=== PATIENT | female | born 1990 | race African-American/Black ===

== ENCOUNTER 2017-07-27 10:36 | Emergency (ER) | payer OTHER ==
[2017-07-27 11:28] LABS: Pregnancy Test - Urine (BHCG) POSITIVE (Negative)
[2017-07-27 11:29] LABS: Pregu Control Background? CLEAR/WHITE (CLR/WHITE); Pregu Control Bar Appear? YES (CONTROL BAR); Specific Gravity 1.027 (1.002-1.036)
[2017-07-27] MEDS ORDERED: Ondansetron ODT 4 MG TAB ONE (11:42)
== END 2017-07-27 11:58 | disposition home or self-care (01) ==
LOC: ERS 10:36
DX: O21.9 Vomiting of pregnancy, unspecified (principal); O99.511 Diseases of the respiratory system complicating pregnancy, first trimester; J45.909 Unspecified asthma, uncomplicated; O99.331 Smoking (tobacco) complicating pregnancy, first trimester; F17.210 Nicotine dependence, cigarettes, uncomplicated; O99.341 Other mental disorders complicating pregnancy, first trimester; F41.9 Anxiety disorder, unspecified; F31.9 Bipolar disorder, unspecified; F90.9 Attention-deficit hyperactivity disorder, unspecified type; Z3A.01 Less than 8 weeks gestation of pregnancy
CPT/HCPCS: 81025; 99284; Q0162

== ENCOUNTER 2018-03-23 07:48 | Inpatient (IN) | payer OTHER ==
[2018-03-28] MEDS ORDERED: Ondansetron HCl/PF 4 MG/2 ML Vial IVP PRN (23:24)
[2018-03-28] MEDS ORDERED: Promethazine HCl 25 MG/ML VIAL IM PRN (23:24)
[2018-03-28] MEDS ORDERED: Lidocaine 1% (PF) 30 ML VIAL SC PRN (23:24)
[2018-03-28] MEDS ORDERED: NS / Oxytocin 40 units/1000ml 1,000 ML IV PRN (23:24)
[2018-03-28] MEDS ORDERED: Penicillin G Potassium 5 MILL.UNITS in Sodium Chloride 0.9% 100 ML IVPB SCH (23:30)
[2018-03-28] MEDS: Lactated Ringer's 1,000 ML IV SCH (23:30)
[2018-03-28] MEDS ORDERED: NS w/ Oxytocin 10 units 500 ML IV SCH (23:30)
[2018-03-28 23:35] LABS: Hemoglobin 10.9 g/dL (12.0-16.0); Mean Corpuscular HGB CONC 35.5 g/dL (32.0-36.0); Mean Corpuscular Hemoglobin 34.9 pg (27.0-31.0); Mean Corpuscular Volume 98.3 fL (78.0-98.0); Mean Platelet Volume 6.7 fL (7.4-10.4); Platelet Count 288 thou/uL (130-400); RBC Distribution Width 11.6 % (11.5-14.5); Red Blood Cell (RBC) Count 3.12 mill/uL (4.20-5.40)
--- NOTE | 2018-03-29 01:34 | PDOC.LDPN ---
Labor & Delivery Progress Note - Subjective Subjective: painful contractions - Objective Vital signs reviewed and normal: yes General: breathing through contractions Uterine fundus: non tender Dilation: 2 Effacement: 75% (80) Station: -2 FHT: category 1 (130/mod/+accel/no decel) [place] contractions every: 2 Resuscitative measures: maternal position change Plan: continue plan of care -: 28 yo at 40.6w here for IOL however found to be in latent labor 1. tIUP - Making cervical change - Continue expectant management - OP position at this time, vertex confirmed on bedside sono - Posterior placenta 2. Sickle cell trait - Per history - will discuss with PCP in a.m. and consider ordering confirmatory testing if results not available 3. H/o seizures - Last seizure > 1 year ago - Not on medication - Saw Dr. Funez during as well as [facility] - No e/o seizure activity 4. Bipolar d/o - Not on medications at this time Recheck in 4 hours
[2018-03-29 02:00] LABS: HBSAg Index 0.22 S/CO (0-0.99); Hep B Surf Ag Non-Reactive S/CO (NonReactive)
[2018-03-29] MEDS: Lactated Ringer's 1,000 ML IV SCH ×3 (03:15→17:17)
[2018-03-29] MEDS: Penicillin G 2.5 MILL.units 2.5 MILL.UNITS in Premix Bag 1 BAG IVPB SCH ×5 (03:27→20:02)
--- NOTE | 2018-03-29 04:40 | PDOC.LDPN ---
Labor & Delivery Progress Note - Subjective Subjective: painful contractions - Objective Vital signs reviewed and normal: yes General: breathing through contractions Dilation: 3 Effacement: 75% (80) Station: -2 FHT: category 1 [place] contractions every: 2-4 min Resuscitative measures: maternal position change Plan: continue plan of care -: 28 yo at 40.6w here for IOL however found to be in latent labor 1. tIUP - Making cervical change - Continue expectant management - OP position at this time, vertex confirmed on bedside sono - Posterior placenta 2. Sickle cell trait - Per history - will discuss with PCP in a.m. and consider ordering confirmatory testing if results not available 3. H/o seizures - Last seizure > 1 year ago - Not on medication - Saw Dr. Funez during as well as [facility] - No e/o seizure activity 4. Bipolar d/o - Not on medications at this time Recheck in 2 hours
[2018-03-29] MEDS: Fentanyl 100 MCG/2 ML VIAL SLOW IVP PRN ×6 (05:43→18:40)
--- NOTE | 2018-03-29 06:39 | PDOC.LDPN ---
Labor & Delivery Progress Note - Subjective Subjective: painful contractions - Objective Vital signs reviewed and normal: yes General: resting Dilation: 3 Effacement: 75% (80) Station: -2 FHT: category 1 [place] contractions every: 1-4 Plan: pitocin for augmentation -: 28 yo at 40.6w here for IOL however found to be in latent labor 1. tIUP - No change in last 2 hours, will augment with pitocin - OP position at this time, vertex confirmed on bedside sono - Posterior placenta - Fentanyl 25-50 mcg q1hr PRN pain or epidural if she desires 2. Sickle cell trait - Per history - will discuss with PCP in a.m. and consider ordering confirmatory testing if results not available 3. H/o seizures - Last seizure > 1 year ago - Not on medication - Saw Dr. Funez during as well as [facility] - No e/o seizure activity 4. Bipolar d/o - Not on medications at this time Recheck in 2 hours
--- NOTE | 2018-03-29 13:09 | PDOC.EVN ---
Event Note - Event Note Event Note: Rounding with OB/Peds team this morning. FOB appeared agitated and unhappy that there were male members of the team. Discussed concerns and informed that an attending physician will need to be involved/supervise labor and delivery. Patient did not seem to object as much as FOB. Concerns somewhat alleviated. FOB will allow 1 male in the room.
--- NOTE | 2018-03-29 17:17 | PDOC.LDPN ---
Labor & Delivery Progress Note - Subjective Subjective: painful contractions - Objective Vital signs reviewed and normal: yes General: breathing through contractions Uterine fundus: palpable contractions Dilation: 4 Effacement: 90% Station: -1 FHT: category 1 AROM: meconium stained fluid Resuscitative measures: other Plan: pitocin for augmentation -: 28 yo @ 41.0 who presents for IOL 1. tIUP - s/p AROM with mec stained fluid - no internals placed at this time. - will restart Pit and see how pt/baby is able to tolerate it as a contraction stress test. - Pt appears very anxious and expressed interest in delivery via . - will recheck in 2 hours or sooner if indicated. - <Erica Holguin - Last Filed: 03/29/18 17:15> Attending Addendum - Attending Addendum Date/Time: 03/30/18 0943 I personally evaluated the patient and discussed the management with Dr. Holguin I agree with the History, Examination, Assessment and Plan documented above with any addition or exceptions noted below. Labor appears dysfunctional. Prior noon-reassuring FHT responded to interventions. Now poor variability. Given desultory progress and non-reassuring FHT chances of diminished. <Henrik Hong - Last Filed: 03/30/18 09:47>
[2018-03-29] MEDS ORDERED: Ibuprofen 800 MG TAB PO SCH (18:00)
--- NOTE | 2018-03-29 18:47 | PDOC.EVN ---
Event Note - Event Note Event Note: Called for failed induction of labor and intolerance of contractions. Discussed risks, benefits and alternatives to and patient expressed understanding and agreed. Will proceed with section.
[2018-03-29] MEDS ORDERED: DISCONTINUE ALL PREVIOUS NARCOTICS FS SCH (19:15)
[2018-03-29] MEDS ORDERED: Bupivacaine 0.5% 20 ML, fentaNYL Citrate/PF 400 MCG in Sodium Chloride 0.9% 72 ML EPIDURAL SCH (19:15)
[2018-03-29] MEDS ORDERED: Phenylephrine HCL 10 MG/ML VIAL ONE (20:00)
[2018-03-29] MEDS ORDERED: Succinylcholine Chloride 20 MG/ML 10 ml SYRINGE FS ONE (20:00)
[2018-03-29] MEDS ORDERED: Oxytocin 10 UNITS/ML VIAL ONE ×2 (20:00→21:52)
[2018-03-29] MEDS ORDERED: PROPOFOL 200 MG/20 ML VIAL ONE (20:00)
[2018-03-29] MEDS ORDERED: Hydrocerin (Eucerin) Cream 120 gm Jar TOP PRN (20:11)
[2018-03-29] MEDS ORDERED: Ondansetron HCl/PF 4 MG/2 ML Vial IVP PRN ×2 (20:11→22:32)
[2018-03-29] MEDS ORDERED: Promethazine HCl 25 MG/ML VIAL IM PRN ×2 (20:11→22:32)
[2018-03-29] MEDS ORDERED: Acetaminophen 325 MG TAB PO PRN (20:11)
[2018-03-29] MEDS ORDERED: Naloxone HCl 0.4 mg/ml Vial IVP PRN ×4 (20:11→22:32)
[2018-03-29] MEDS ORDERED: ePHEDrine/0.9% NaCl/PF SYRINGE 50 mg/10 ml SLOW IVP PRN (20:11)
[2018-03-29] MEDS ORDERED: Lactated Ringer's 500 ML IV PRN (20:11)
[2018-03-29] MEDS ORDERED: diphenhydrAMINE 50 MG/ML VIAL IVP PRN ×2 (20:11→22:32)
[2018-03-29] MEDS ORDERED: Communication Order-Pharmacy FS SCH ×2 (20:15→22:45)
[2018-03-29] MEDS ORDERED: fentaNYL Citrate/PF 400 MCG, Bupivacaine 0.5% 20 ML in Sodium Chloride 0.9% 72 ML EPIDURAL SCH (20:15)
--- NOTE | 2018-03-29 20:56 | PDOC.LDPN ---
Labor & Delivery Progress Note - Subjective Subjective: comfortable - Objective Vital signs reviewed and normal: yes General: resting Uterine fundus: non tender Dilation: 4 Effacement: 90% Station: -1 FHT: category 3 (120/mod/no accel/recurrent late decels) [place] contractions every: 2-4 min AROM: meconium stained fluid IUPC placed: yes Resuscitative measures: amniofusion, maternal oxygen, maternal IV fluids, maternal position change - Assessment (1) Term Code(s): Z34.80 - ENCOUNTER FOR SUPRVSN OF NORMAL , UNSP TRIMESTER Current Visit: Yes Status: Acute Plan: other -: 28 yo at 40.6w here for IOL, now with recurrent late decelerations 1. tIUP - No cervical change since 1300, multiple attempts at pitocin augmentation with baby has not tolerated - Now with recurrent late decelerations - After epidural placement, amnioinfusion and position chance, no improvement - Discussed risks/benefits/alternatives again with patient who agrees to proceed with primary LTCS for non-reassuring FHT - Posterior placenta 2. Sickle cell trait - Per history 3. H/o seizures - Last seizure > 1 year ago - Not on medication - Saw Dr. Funez during as well as [facility] - No e/o seizure activity 4. Bipolar d/o - Not on medications at this time Will proceed with primary LTCS for NRFHT. Anesthesia notified and on the way. <Robyn Amin - Last Filed: 03/29/18 21:00> Attending Addendum - Attending Addendum Date/Time: 03/30/18 0948 I personally evaluated the patient and discussed the management with Dr. Amin I agree with the History, Examination, Assessment and Plan documented above with any addition or exceptions noted below. <Henrik Hong D - Last Filed: 03/30/18 09:49>
[2018-03-29] MEDS ORDERED: CEFAZOLIN/Water 2 GM/20 ML SYRINGE ONE (20:58)
[2018-03-29] MEDS ORDERED: Bicitra 30 ML UDCUP ONE (20:59)
[2018-03-29] MEDS ORDERED: Azithromycin 500 MG in Sodium Chloride 0.9% 250 ML 250 ML IVPB SCH (21:00)
[2018-03-29] MEDS ORDERED: Bicitra 30 ML UDCUP PO SCH (21:00)
[2018-03-29] MEDS ORDERED: CEFAZOLIN/Water 2 GM/20 ML SYRINGE SLOW IVP SCH (21:00)
[2018-03-29] MEDS ORDERED: Ondansetron HCl/PF 4 MG/2 ML Vial ONE (21:52)
[2018-03-29] MEDS ORDERED: Lidocaine 2% PF 5 ML VIAL ONE (21:54)
[2018-03-29] MEDS ORDERED: Lidocaine 2% PF Inj 2 ML VIAL ONE (21:55)
[2018-03-29] MEDS ORDERED: Fentanyl 100 MCG/2 ML VIAL ONE (22:10)
[2018-03-29 22:23] LABS: Actual Bicarbonate (HCO3a) 24.1 mEq/L (22-28); Base Excess (BEa) -5.1 mEq/L (-2.0 to +3.0)
[2018-03-29] MEDS ORDERED: Morphine PF 1 MG/ML SYR ONE (22:28)
[2018-03-29] MEDS ORDERED: Promethazine HCl 25 MG SUPP PR PRN (22:32)
[2018-03-29] MEDS ORDERED: Eucerin (Mineral Oil/Petrolatum,White) 30 gm Jar TOP PRN (22:32)
[2018-03-29] MEDS ORDERED: Naloxone HCl 0.4 mg/ml Vial IV PRN (22:32)
[2018-03-29] MEDS ORDERED: Ketorolac Tromethamine 30 MG/ML VIAL IVP PRN (22:32)
[2018-03-30] MEDS ORDERED: Lidocaine 2% PF Inj 2 ML VIAL ONE (00:30)
[2018-03-30] MEDS ORDERED: Bupivacaine/Epinephrine 0.25% 30 ML VIAL ONE (00:30)
[2018-03-30] MEDS ORDERED: Ketorolac Tromethamine 30 MG/ML VIAL ONE (01:31)
--- NOTE | 2018-03-30 02:24 | PDOC.PP ---
Post Progress Note Post Day #: 1 Subjective: Ms Chao is a 28yo now who delivered a TAGA female at 40.6w via stat section under general anesthesia for nonreassuring heart tones at 2210. Pt feeling good and pain is well controlled. Nursing reports minimal lochia. Tolerating ice chips. Denies VAZQUEZ, Shortness of breath. PO intake tolerated: yes (Ice chips and water) Flatus: no Ambulation: no Vital Signs (12 hours) Temp Pulse Resp BP Pulse Ox 03/30/18 02:08 98.6 F 71 18 123/59 L 96 Weight Weight 154 g - Physical Examination General: NAD Cardiovascular: no m/r/g, RRR Respiratory: clear to auscultation bilaterally, non-labored breathing Abdominal: + bowel sounds, lochia, appropriately TTP Deviation from normal: incision covered Psychiatric: A&Ox3, normal affect Result Diagrams: 03/28/18 22:01 Additional Labs: Post Labs Blood Type O POSITIVE 03/28/18 22:01 Hep Bs Antigen Non-Reactive S/CO (NonReactive) 03/28/18 22:01 (1) Normal course Code(s): Z39.2 - ENCOUNTER FOR ROUTINE FOLLOW-UP Status: Acute - Assessment/Plan Ms Chao is a 28yo now who delivered a TAGA female at 40.6w via stat section under general anesthesia for nonreassuring heart tones at 2210. Postop 4hrs - Continue Routine care - H&H in AM - Will add PO pain meds - Advance diet slowly as tolerated <Princess Lucas - Last Filed: 03/30/18 04:07> Vital Signs (12 hours) Temp Pulse Resp BP Pulse Ox 03/30/18 04:19 98.0 F 77 18 113/56 L 03/30/18 02:29 72 18 129/66 99 03/30/18 02:08 98.6 F 71 18 123/59 L 96 Weight Weight 154 g Result Diagrams: 03/30/18 05:06 Additional Labs: Post Labs Blood Type O POSITIVE 03/28/18 22:01 Hep Bs Antigen Non-Reactive S/CO (NonReactive) 03/28/18 22:01 <Henrik Hong - Last Filed: 03/30/18 09:51> Attending Addendum - Attending Addendum Date/Time: 03/30/18 0950 I personally evaluated the patient and discussed the management with Dr. Holguin I agree with the History, Examination, Assessment and Plan documented above with any addition or exceptions noted below. Wound looks great, pain well controlled <Henrik Hong - Last Filed: 03/30/18 09:51>
[2018-03-30] MEDS ORDERED: Lanolin Ointment 7 GM TUBE TOP PRN (02:29)
[2018-03-30] MEDS: Penicillin G 2.5 MILL.units 2.5 MILL.UNITS in Premix Bag 1 BAG IVPB SCH (02:50)
[2018-03-30] MEDS ORDERED: Adacel (T-DAP) 0.5 ML VIAL IM ONE (03:00)
[2018-03-30] MEDS ORDERED: diphenhydrAMINE 25 MG CAP PO PRN (03:02)
[2018-03-30] MEDS ORDERED: HYDROcodone/Acetaminophen 5/325 mg Tablet PO PRN (03:25)
[2018-03-30] MEDS ORDERED: Ibuprofen 800 MG TAB PO SCH (04:00)
[2018-03-30] MEDS: Ibuprofen 800 MG TAB PO SCH ×3 (05:39→22:06)
[2018-03-30 05:41] LABS: Hemoglobin 9.4 g/dL (12.0-16.0); Mean Corpuscular HGB CONC 35.2 g/dL (32.0-36.0); Mean Corpuscular Hemoglobin 35.2 pg (27.0-31.0); Mean Platelet Volume 6.5 fL (7.4-10.4); Platelet Count 224 thou/uL (130-400); RBC Distribution Width 11.8 % (11.5-14.5); Red Blood Cell (RBC) Count 2.66 mill/uL (4.20-5.40); White Blood Cell (WBC) Count 13.7 thou/uL (4.8-10.8)
--- NOTE | 2018-03-30 08:56 | PDOC.PP ---
Post Progress Note Post Day #: 1 Subjective: Pt doing well this morning. Pain is well controlled. She is tolerating PO. Has not started ambulating yet. Bonding well with baby. PO intake tolerated: yes Flatus: no Vital Signs (12 hours) Temp Pulse Resp BP Pulse Ox 03/30/18 04:19 98.0 F 77 18 113/56 L 03/30/18 02:29 72 18 129/66 99 03/30/18 02:08 98.6 F 71 18 123/59 L 96 Weight Weight 154 g - Physical Examination General: NAD Cardiovascular: no m/r/g, RRR Respiratory: clear to auscultation bilaterally Abdominal: no distention, appropriately TTP Fundus firm & at: 3 above umbilicus Skin: CS incision dry & intact Neurological: no gross focal deficits Psychiatric: A&Ox3, normal affect Result Diagrams: 03/30/18 05:06 Additional Labs: Post Labs Blood Type O POSITIVE 03/28/18 22:01 Hep Bs Antigen Non-Reactive S/CO (NonReactive) 03/28/18 22:01 (1) Normal course Code(s): Z39.2 - ENCOUNTER FOR ROUTINE FOLLOW-UP Status: Acute Comment: s/p pLTCS. Pt progressing well. H/H stable. Encourage ambulation. Pt may advance diet as tolerated. Pain control with PO meds. <Erica Holguin - Last Filed: 03/30/18 08:54> Vital Signs (12 hours) Temp Pulse Resp BP Pulse Ox 03/30/18 04:19 98.0 F 77 18 113/56 L 03/30/18 02:29 72 18 129/66 99 03/30/18 02:08 98.6 F 71 18 123/59 L 96 Weight Weight 154 g Result Diagrams: 03/30/18 05:06 Additional Labs: Post Labs Blood Type O POSITIVE 03/28/18 22:01 Hep Bs Antigen Non-Reactive S/CO (NonReactive) 03/28/18 22:01 <Henrik Hong - Last Filed: 03/30/18 09:53> Attending Addendum - Attending Addendum Date/Time: 03/30/18 0952 I personally evaluated the patient and discussed the management with Dr. Holguin I agree with the History, Examination, Assessment and Plan documented above with any addition or exceptions noted below. <Henrik Hong - Last Filed: 03/30/18 09:53>
--- NOTE | 2018-03-30 09:43 | DN-2 ---
DATE OF PROCEDURE: 03/30/2018 RESIDENT SURGEON: Robyn Amin M.D.; Pily Amaral DO. SPRAY II PAINTER SURGEON: Princess Lucas M.D. ATTENDING SURGEON: Henrik Hong M.D. PROCEDURE: Primary low-transverse section for nonreassuring heart tones. PREOPERATIVE DIAGNOSES: 1. Term intrauterine at 40.6 weeks. 2. Persistent category 3 tracing. 3. Sickle cell trait per history. 4. Seizure disorder. 5. Bipolar disorder. POSTOPERATIVE DIAGNOSIS: Term intrauterine , status post stat low-transverse secti on. ANESTHESIA: General plus epidural was not adequate. INDICATIONS: The patient is a 28-year-old G2, P0-0-1-0, now P1-0-1-1 female at 40.6 weeks gestation who presented for induction of labor. She was initially found to be in latent labor and was monitore d initially with expectant management. Initially, the patient had some intermittent late deceleratio ns; however, these were remedied with position changes and the patient continued to desire to labor a nd made it to 4 cm dilation despite multiple attempts at augmentation and artificial rupture of membranes. This revealed light meconium and at that time, the patient was having intermittent late decelerations. The patient desired to try an epidural and an ongoing position changes to see if she can continue to make cervical change. Unfortunately, despite all associative efforts, the hear t tracing began to have recurrent late decelerations and a was rediscussed with the patient who was agreeable at that time. The patient presented to the operating room, heart tones were checked prior to prepping and draping for the procedure and heart tones were found to be in th e 80s. At this time, the patient was dispositioned for a stat section. PROCEDURE IN DETAIL: After risks, benefits, and alternatives were explained to the patient, she gave informed consent. Preoperative antibiotics included cefazolin 2 grams IV and azithromycin 500 mg __ ___. The patient was taken to the operating room and as described above, general anesthesia was init iated as epidural was not adequate and the procedure became stat in nature with heart tones in the 80s. She was placed in the supine position with left tilt and prepped and draped in the usual st erile fashion. A Pfannenstiel incision was made with a scalpel and carried to the level of the fasci a, which was sharply nicked. The fascial cut was extended bilaterally with Lee scissors. The infer ior and superior edges of the cut fascial edges were elevated with Сергей clamps and underlying rectu s muscles were sharply and bluntly dissected free. The recti were divided digitally and retracted ma nually. The peritoneum was entered bluntly and retracted manually. The bladder blade was placed. L ow-transverse scar was made with the scalpel and the uterus was entered in the midline bluntly. Meco nium-stained fluid was seen. Hysterotomy was extended manually in a cephalic caudal position. The i nfant was noted to be vertex and easily delivered by fundal pressure. Mouth and nares were bulb suct ioned. Cord clamped and cut and grossly normal. Female infant was handed to the waiting nurse. Cor d blood was obtained. Cord segment was obtained. Placenta was manually extracted and found to be in tact with three-vessel cord and sent to pathology for evaluation. The uterus was externalized and th e endometrium was curetted with a dry lap. The bladder blade was replaced and the uterus was closed with a running locking 1-0 Monocryl suture. Of note, a left lateral extension on the hysterotomy was noted and was easily incorporated into the hysterotomy repair. At this time, I transitioned the ope ration to Dr. Pily Amaral who will dictate an addendum to this procedure. Per report, the rest of the operation was routine and the patient tolerated it very well. QBL was 885 and urine output wa s 600 mL of clear fluid. QUANTITATIVE BLOOD LOSS: 885 mL. COMPLICATIONS: Left lateral hysterotomy extension, status post repair. SPECIMENS: Cord blood sent to the lab for blood type and cord gas showed a pH of 7.2 with a base exc ess of 5.1. FINDINGS: Grossly normal female with Apgars of 8 and 9. Grossly normal placenta with meconiu m stain and 3-vessel cord, sent to pathology. DRAINS: [place] to gravity draining clear urine. Please see Dr. Amaral's note for details on the remainder of the procedure after first layer of hy sterotomy repair.
[2018-03-30] MEDS: Simethicone Chewable 80 MG TAB PO PRN (23:37)
[2018-03-30] MEDS: HYDROcodone/Acetaminophen 5/325 mg Tablet PO PRN (23:41)
[2018-03-31] MEDS: Ibuprofen 800 MG TAB PO SCH ×3 (05:36→21:47)
--- NOTE | 2018-03-31 07:57 | PDOC.PP ---
Post Progress Note Post Day #: 2 Subjective: Patient is doing well this morning. No complaints. Pain is well-controlled. PO intake tolerated: yes Flatus: yes Ambulation: yes Vital Signs (12 hours) Temp Pulse Resp BP Pulse Ox 03/31/18 05:30 98.6 F 61 18 129/80 97 03/30/18 23:44 98.4 F 75 18 129/79 03/30/18 20:30 98.7 F 72 18 127/71 94 L Weight Weight 65.771 kg - Physical Examination General: NAD Cardiovascular: no m/r/g Respiratory: clear to auscultation bilaterally Abdominal: lochia (normal period.), no distention, appropriately TTP Fundus firm & at: 1 above umbilicus Extremities: negative homans (B) Skin: CS incision dry & intact Neurological: no gross focal deficits Psychiatric: A&Ox3, normal affect Result Diagrams: 03/30/18 05:06 Additional Labs: Post Labs Blood Type O POSITIVE 03/28/18 22:01 Hep Bs Antigen Non-Reactive S/CO (NonReactive) 03/28/18 22:01 (1) Normal course Code(s): Z39.2 - ENCOUNTER FOR ROUTINE FOLLOW-UP Status: Acute Comment: s/p pLTCS. Pt progressing well. Vitals stable Pain control with PO meds. Barrier methods planned for contraception. Likely discharge tomorrow morning.
[2018-03-31] MEDS: Simethicone Chewable 80 MG TAB PO PRN (09:21)
--- NOTE | 2018-03-31 22:47 | PDOC.OPDEL ---
OB Operative/Delivery Note Delivery Dr/Surgeon: Brennan Assist: Gely Amaral Pre-Delivery Diagnosis: non-reassuring tracing Procedure/Post Delivery Dx: primary low transverse CS Weeks gestation: 40 (40.6 wks) Anesthesia: other (General anesthesia) - Findings A Sex: female - 1 min: 8 - 5 min: 9 - Additional Findings/Plan Placenta delivered: manual removal findings: low transverse hysterotomy with extension (minor left extension) Estimated blood loss: QBL 885 mL Compilations/Other Findings: Procedure Note Date of Procedure: 03/29/2018 Resident Surgeon: Brennan Legal Internship Surgeon: Munir Attending Surgeon: Gely Procedure: Primary low transverse caesarean section Preoperative Diagnosis: 1)Term intrauterine 2)NRFHTs, not tolerating pitocin 3)Rubella non-immune 4)GBS positive Postoperative Diagnosis: 1)same as above 2)TIUP, delivered Anesthesia: General anesthesia Indications: The patient is a 28 year old G2,P0010 female at 40.5 weeks gestation who presents for a scheduled elective induction of labor. She was taken back for stat pLTCS due to non-reassuring FHTs. Procedure in Detail: After risks, benefits, and alternatives were explained to the patient, she gave informed consent. Pre-operative antibiotics included Cefazolin 2 gram IV. The patient was taken to the operating room and spinal anesthesia was initiated. She was placed in the supine position with a left tilt and prepped and draped in usual sterile fashion. A Pfannenstiel incision was made with a scalpel and carried down to the level of the fascia which was sharply nicked. The fascial cut was extended bilaterally with Lee sissors. The inferior and superior edges of the cut fascial edges were elevated with Сергей clamps and the underlying rectus muscles were sharply and bluntly dissected free. The recti were divided digitally and retracted manually. The peritoneum was entered bluntly and retracted manually. Bladder blade was placed. A low transverse score was made with the scalpel and the uterus was entered in the midline with the scalpel. Meconium stained fluid was noted. The hysterotomy was extended manually. The infant was noted to be vertex and was easily delivered by fundal pressure. Mouth and nares were bulb suctioned. Cord clamped and cut and grossly normal female infant was handed to waiting nurse. Cord blood and cord segment were obtained. Placenta was manually extracted, found to be intact with 3 vessel cord and discarded. The uterus was externalized and the endometrium was curetted with a dry lap. The bladder blade was replaced and the uterus was closed with a running locking #1 Chromic suture followed by a running non-locking #1 Chromic imbricating suture. Following this hemostasis was noted. The uterus was internalized and the hysterotomy was again noted to be hemostatic. The fascia was closed with a running non-locking 0-Vicryl suture. The subcutaneous tissue was irrigated and there were no bleeders. The skin was approximated 4-0 monocryl and a pressure dressing was placed. All counts were correct. The patient tolerated the procedure well and was taken to the recovery room in stable condition. Quantitative Blood Loss: 885 mL Complications: None Specimens: Cord blood sent to lab for blood type, Cord segment sent for analysis , placenta sent for pathology Findings: Grossly normal female infant with apgars of 8 and 9. Grossly normal placenta with 3 vessel cord discarded. Drains: [place] to gravity draining clear urine Post delivery plan: routine recovery
[2018-04-01] MEDS: HYDROcodone/Acetaminophen 5/325 mg Tablet PO PRN (04:15)
[2018-04-01] MEDS: Ibuprofen 800 MG TAB PO SCH (06:11)
--- NOTE | 2018-04-01 07:35 | PDOC.PP ---
Post Progress Note Post Day #: 2 Subjective: Patient doing well today. Pain well-controlled. PO intake tolerated: yes Flatus: yes Ambulation: yes Vital Signs (12 hours) Temp Pulse Resp BP Pulse Ox 03/31/18 20:20 98.3 F 59 L 16 124/70 96 03/31/18 20:00 98.3 F 59 L 16 Weight Weight 65.771 kg - Physical Examination General: NAD Cardiovascular: no m/r/g, RRR Respiratory: clear to auscultation bilaterally Abdominal: lochia (normal), no distention, appropriately TTP Fundus firm & at: 1 Extremities: negative homans (B) Skin: CS incision dry & intact Psychiatric: A&Ox3 Result Diagrams: 03/30/18 05:06 Additional Labs: Post Labs Blood Type O POSITIVE 03/28/18 22:01 Hep Bs Antigen Non-Reactive S/CO (NonReactive) 03/28/18 22:01 (1) Normal course Code(s): Z39.2 - ENCOUNTER FOR ROUTINE FOLLOW-UP Status: Acute Comment: s/p pLTCS. Pt progressing well. Vitals stable Pain control with PO meds. Barrier methods planned for contraception. Discharge planned for today. Follow-up recommended for 2 weeks. <Erica Holguin - Last Filed: 04/01/18 07:49> Vital Signs (12 hours) Temp Pulse Resp BP Pulse Ox 04/01/18 08:01 60 04/01/18 07:58 98.1 F 50 L 18 141/77 H 95 04/01/18 07:37 98.3 F 59 L 16 Weight Weight 65.771 kg Result Diagrams: 03/30/18 05:06 Additional Labs: Post Labs Blood Type O POSITIVE 03/28/18 22:01 Hep Bs Antigen Non-Reactive S/CO (NonReactive) 03/28/18 22:01 <Enriqueta Ruiz - Last Filed: 04/01/18 10:06> Attending Addendum - Attending Addendum Date/Time: 04/01/1858 I personally evaluated the patient and discussed the management with Dr. Holguin I agree with the History, Examination, Assessment and Plan documented above with any addition or exceptions noted below- Patient without complaints. Feeling well. Ambulating without difficulty. pain well controlled. Afebrile VSS A/P: 1) POD#3 s/p 1*LCT C/S for non-reassuring FHTs- doing well. Plan to d/c home today. <Enriqueta Ruiz - Last Filed: 04/01/18 10:06>
[2018-04-01 08:00] VITALS: BP 141/77
[2018-04-01 12:09] VITALS: TEMP 98.3
== END 2018-04-01 12:48 | disposition home or self-care (01) | DRG 765 ==
LOC: L&D 03-28 21:17 → 3SE 03-30 02:12
PROVIDERS: ADMIT Family Medicine; ATTEND Family Medicine
PROC: 10D00Z1 Extraction of Products of Conception, Low, Open Approach (ICD-10-PCS; principal; 2018-03-30)
PROC: 3E033VJ Introduction of Other Hormone into Peripheral Vein, Percutaneous Approach (ICD-10-PCS; 2018-03-30)
DX: O48.0 Post-term pregnancy (principal); O99.354 Diseases of the nervous system complicating childbirth; Z37.0 Single live birth; O99.824 Streptococcus B carrier state complicating childbirth; Z3A.40 40 weeks gestation of pregnancy; O99.02 Anemia complicating childbirth; D57.3 Sickle-cell trait; G40.909 Epilepsy, unspecified, not intractable, without status epilepticus; F31.9 Bipolar disorder, unspecified; O99.343 Other mental disorders complicating pregnancy, third trimester; O76 Abnormality in fetal heart rate and rhythm complicating labor and delivery
CPT/HCPCS: 36415; 82805; 83021; 85027; 86850; 86900; 86901; 87340; J0456; J1885; J2001; J2274; J2370; J2405; J2540; J2590; J2704; J3010; J3490; J7050

== ENCOUNTER 2018-03-25 17:36 | Day surgery (SDC) | payer OTHER ==
[2018-03-25 18:32] VITALS: BMI 30.4
--- NOTE | 2018-03-25 20:08 | PDOC.LDHP ---
Labor and Delivery H&P Chief complaint: contractions HPI: 28 yo here for reported increased contractions. Feels every 7 min. Was seen in clinic by Dr. Morena Holguin on and was dilated at 1cm and had her membranes stripped. She reports intermittent spotting since then. She endorses FM, vaginal pressure. No LOF or pain with CTX. No other complaints at this time. Current gestational age (weeks): 40 (40.2) Due date: 03/23/18 Dating criteria: last menstrual period (10.2wk sono), first trimester ultrasound Grav: 2 Para: 10 Current complications: none Allergies/Adverse Reactions: Allergies Allergy/AdvReac Type Severity Reaction Status Date / Time almond Allergy Severe Anaphylaxis Verified 03/25/18 18:17 Social history: other (tobacco use shortly before , but none during) - Physical Exam Vital signs reviewed and normal: yes General: NAD, resting Heart: RRR Lungs: nonlabored breathing Abdomen: NTTP Extremeties: no edema - Vaginal Exam cm dilated: 3 Effacement: 75% Station: -1 - OB Labs Blood type: O RH: positive Antibody Screen: negative HIV: negative RPR: negative HEPSAg: negative 1 hour GCT: negative GBS: positive Urine drug screen: negative Rubella: non-immune - Assessment post dates, latent labor - Plan -: 28 yo here for latent labor 1. sIUP, Post dates, latent labor -FHT Cat I, no 15x15 accels but presence of 10x10 -SVE at 1930 3/75/-1, regularly bernice q5min -Will monitor for the next two hours and recheck to assess for cervical progression -If making changes, will admit patient for labor 2. GBS+ -will start PCN ppx if she is admitted 3. Rubella Non immune -aware 4. Hx of anemia -can consider H/H post , taking oral iron, last labs report stable Hb of [address] ewing
[2018-03-25 20:49] VITALS: TEMP 99.2
[2018-03-25 20:56] VITALS: BP 126/72
--- NOTE | 2018-03-25 22:24 | PDOC.LDPN ---
Labor & Delivery Progress Note - Subjective Subjective: comfortable - Objective General: NAD Uterine fundus: non tender Dilation: 2 Effacement: 75% Station: -1 FHT: category 1 -: 28 yo here for latent labor 1. sIUP, Post dates, latent labor -FHT Cat I, no 15x15 accels but presence of 10x10 -SVE at 2130 unchanged from two hours ago -Due to no progression and inconsistent contractions, pt. is in latent labor. She is a G1 so do not expect rapid changes warranting admission for active labor. Pt. lives nearby and stated she feels comfortable going home. Gave her labor precautions and when to return. 2. GBS+ -will start PCN ppx if she is admitted 3. Rubella Non immune -aware 4. Hx of anemia -can consider H/H post , taking oral iron, last labs report stable Hb of [address] ewing
[2018-03-25] MEDS ORDERED: Butorphanol Tartrate 1 MG/ML VIAL SLOW IVP SCH (22:30)
== END 2018-03-25 22:35 | disposition home or self-care (01) ==
LOC: L&D/OP 17:36
DX: O48.0 Post-term pregnancy (principal); O99.820 Streptococcus B carrier state complicating pregnancy; O99.013 Anemia complicating pregnancy, third trimester; Z3A.40 40 weeks gestation of pregnancy
CPT/HCPCS: 96372; 99283; J0595

== ENCOUNTER 2018-07-07 14:37 | Emergency (ER) | payer OTHER ==
--- NOTE | 2018-07-07 15:33 | RAD ---
CHEST TWO VIEWS: 07/07/2018 PROVIDED CLINICAL HISTORY: Cough. COMPARISON: 07/03/2011 FINDINGS: The cardiac silhouette is at the upper limits of normal in size. The lungs appear clear. There is n o pleural fluid or pneumothorax apparent. IMPRESSION: No evidence for an acute cardiopulmonary process. POS: [facility]
== END 2018-07-07 15:48 | disposition home or self-care (01) ==
LOC: ERS 14:37
DX: J40 Bronchitis, not specified as acute or chronic (principal); F31.9 Bipolar disorder, unspecified; F90.9 Attention-deficit hyperactivity disorder, unspecified type; F17.210 Nicotine dependence, cigarettes, uncomplicated; F41.9 Anxiety disorder, unspecified
CPT/HCPCS: 71046

== ENCOUNTER 2019-06-19 19:09 | Emergency (ER) | payer OTHER ==
[2019-06-19 21:12] LABS: #Basophils 0.1 thou/uL (0.0-0.2); #Eosinphils 0.3 thou/uL (0.0-0.7); #Lymphocytes 2.9 thou/uL (1.20-3.40); #Monocytes 0.8 thou/uL (0.11-0.59); %Basophils 1.2 % (0.0-1.0); %Eosinophils 3.3 % (0.0-10.0); %Lymphocytes 36.1 % (21.0-51.0); %Monocytes 9.3 % (0.0-10.0); Hemoglobin 11.6 g/dL (12.0-16.0); Mean Corpuscular HGB CONC 33.3 g/dL (32.0-36.0); Mean Corpuscular Hemoglobin 34.2 pg (27.0-31.0); Mean Platelet Volume 6.9 fL (7.4-10.4); Platelet Count 203 thou/uL (130-400); RBC Distribution Width 11.5 % (11.5-14.5); Red Blood Cell (RBC) Count 3.39 mill/uL (4.20-5.40)
[2019-06-19 21:34] LABS: ALT (SGPT) 10 U/L (8-55); AST (SGOT) 14 U/L (5-34); Albumin 4.3 g/dL (3.5-5.0); Alkaline Phosphatase 46 U/L (40-110); Anion Gap 9 mmol/L (10-20); BUN (Urea Nitrogen) 17 mg/dL (7.0-18.7); Bilirubin, Total 0.3 mg/dL (0.2-1.2); Calc. Creatinine Clearance 0 mL/min (70-130); Calcium 9.3 mg/dL (7.8-10.44); Carbon Dioxide 26 mmol/L (22-29); Chloride 106 mmol/L (98-107); Estimated GFR-MDRD 70; Globulin 2.9 g/dL (2.4-3.5); Glucose 86 mg/dL (70-105); Lipase 33 U/L (8-78); Potassium 3.6 mmol/L (3.5-5.1); Protein, Total 7.2 g/dL (6.0-8.3); Sodium 137 mmol/L (136-145)
[2019-06-19 21:56] LABS: Bilirubin Negative (Negative); Blood, Urine Negative (Negative); Clarity Clear (Clear); Glucose, Urine (Dipstick) Normal (Negative); Leukocyte 25 Leu/uL (Negative); Nitrite 2+ (Negative); Pregnancy Test - Urine (BHCG) Negative (Negative); Pregu Control Background? CLEAR/WHITE (CLR/WHITE); Pregu Control Bar Appear? YES (CONTROL BAR); Protein, Urine (Dipstick) Negative (Neg-Trace); RBC/HPF 0-3 HPF (0-3); Specific Gravity 1.025 (1.002-1.036); Urobilinogen Normal mg/dL (Less than 2)
[2019-06-19 22:06] LABS: Bacteria/HPF 3+ HPF (None Seen)
== END 2019-06-19 22:20 | disposition home or self-care (01) ==
LOC: ERS 19:09
DX: N39.0 Urinary tract infection, site not specified (principal); R19.7 Diarrhea, unspecified; F41.9 Anxiety disorder, unspecified; F31.9 Bipolar disorder, unspecified; F17.210 Nicotine dependence, cigarettes, uncomplicated; J45.909 Unspecified asthma, uncomplicated; F90.9 Attention-deficit hyperactivity disorder, unspecified type
CPT/HCPCS: 36415; 80053; 81003; 81015; 81025; 83690; 85025; 99284

== ENCOUNTER 2020-03-18 05:41 | Inpatient (IN) | payer OTHER ==
[~2020-03-18 05:41] MED LIST: Promethazine HCl 25 MG/ML VIAL IM PRN
[2020-03-18] MEDS ORDERED: Ondansetron PF 4 MG/2 ML Vial IVP PRN ×3 (05:45→11:49)
[2020-03-18] MEDS ORDERED: hydrALAZINE 20 MG/ML VIAL SLOW IVP PRN ×2 (05:45→11:49)
[2020-03-18] MEDS ORDERED: Lactated Ringer's 1,000 ML IV SCH (05:45)
[2020-03-18] MEDS ORDERED: CEFAZOLIN 2 GM in Premix Bag 1 BAG IVPB SCH (06:00)
[2020-03-18] MEDS ORDERED: Bicitra 30 ML UDCUP PO SCH (06:00)
[2020-03-18 06:33] VITALS: BMI 30.2
--- NOTE | 2020-03-18 06:33 | PDOC.FPROB ---
FMR OB H&P: HPI - History of Present Illness Chief Complaint: rCSx Indentification: History of Present Illness: Patient is a 30 y/o female at 38.3W EGA by LMP, consistent with 2T US, who presents to L&D for rCSx. Patient's has been complicated by 1T and 2T drug abuse (MJ), inconsistent follow-up with TAMP and MFM, and suspicion for IUGR. Of note, the patient also has a history of untreated Bipolar Disorder, untreated Asthma and untreated Seizure Disorder, but per the patient her last seizure was >24M prior. Patient states that she feels well at this time, and endorses good movement, with no painful contractions or loss of fluids. In addition, patient denies severe headaches, visual disturbances, RUQ pain or lower extremity edema. Primary Care Physician: Dr. Michael Teague ([facility]) / Dr. Suhail Lucas ([facility]) FMR OB H&P: Current - Care : 3 Para: 1 Gestational age: 38.3W Due date: 03/29/2020 Dating Criteria: LMP, consistent with 2T US Course/Complications: See HPI - OB Labs Blood type: O RH: positive Antibody Screen: negative HIV: negative RPR: negative HepBsAg: negative Quad screen: negative Urine drug screen: positive Gonorrhea: negative Chlamydia: negative Pap Smear: Negative 1 hour gtt: 142 3 hour GTT: 100 GBS: positive H&H: 10.5 / 30 Platelets: 250 Additional labs: Pre-E Labs and UDS pending - First Trimester Ultrasound First trimester: Not Performed - Additional Ultrasound Additional: 12/02/2019 US: EFW 6%, Size Consistent with Dates, Constitutionally Small Fetus vs. 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 - Family History Family History: Maternal Hx of Sickle Cell Trait FMR OB H&P: Medications - Current Home Medications: Medication Instructions Recorded Confirmed Type Acetaminophen [Tylenol] 650 mg PO Q8H PRN #30 capsule 03/20/20 Rx Ferrous Sulfate [Feosol] 325 mg PO BID #60 tab 03/20/20 Rx Ibuprofen 800 mg PO TID PRN #30 tablet 03/20/20 Rx Ibuprofen [Motrin] 800 mg PO Q8HR #20 tab 03/20/20 Rx Magnesium Hydroxide [Milk Of 30 ml PO DAILYPRN PRN #1 bot 03/20/20 Rx Magnesium] Multivit 47/Iron/Folate 1/Dha 1 each PO DAILY #30 capsule 03/20/20 Rx [Virt-Pn Dha Softgel] Polyethylene Glycol 3350 [Miralax] 17 gm PO DAILY #30 pk 03/20/20 Rx Allergies/Adverse Reactions: Allergies Allergy/AdvReac Type Severity Reaction Status Date / Time almond Allergy Severe Anaphylaxis Verified 10/20/19 14:04 FMR OB H&P: ROS - Review of Systems General: reports: fatigue. denies: fever/chills, recent trauma Eyes: denies: vision changes, scotomas, floaters ENT: denies: rhinorrhea, frequent nose bleed Cardiovascular: denies: chest pain, palpitation, edema Respiratory: denies: cough, congestion, shortness of breath Gastrointestinal: denies: abdominal pain, cramping, nausea, vomiting, diarrhea, constipation, bright red blood Genitourinary (Female): reports: vaginal pressure. denies: dysuria, hematuria, vaginal discharge, vaginal bleeding, vaginal mass/sore, contractions Musculoskeletal: reports: pain, stiffness Neurologic: denies: syncope, seizures, headache Integumentary: denies: rash Breast: reports: pain/tenderness Psychological: reports: depression (Intermittent), other (No recent episodes of ricardo) FMR OB H&P: Vital Signs - Maternal Vital signs: HR (65) BP (137/85) RR (18) O2Sat(100%) - Heart Tones Baseline: 140 Variability: moderate Acceleration: present Deceleration: absent Category: category 1 [place] contractions every: Intermittent FMR OB H&P: Physical Exam - Physical Exam General: NAD, awake, alert and oriented HEENT: normocephalic and atraumatic, PERRLA, EOMI, MMM, grossly normal vision, grossly normal hearing, normal nasal mucosa, oropharynx clear, good dention Neck: supple, FROM, trachea midline, no LAD Chest: non-tender to palpation Breast: symmetric Heart: RRR, normal S1/S2, pulses present, no edema, other (3/6 Systolic Murmur) General: CTAB, no respiratory distress, good air movement, no rales/rhonchi, no wheezing, no retractions Abdomen: gravid, non-tender Musculoskeletal: pulses present, FROM in all four extremities, no misalignment/ asymmetry, no atrophy Neurological: cranial nerves II through XII intact, no focal deficit Skin: no rash, capillary refill <2 seconds Lymphatic: no unusual bruising or bleeding, no purpura, no petechia, no LAD Psychiatric: intact recent and remote memory, good judgement and insight, normal mood and affect - Pelvic Exam Vulva: normal hair distribution, no lesions FMR OB H&P: A/P - Problem List (1) High-risk Status: Acute Code(s): O09.90 - SUPERVISION OF HIGH RISK , UNSP, UNSP TRIMESTER (2) History of tobacco abuse Status: Acute Code(s): Z87.891 - PERSONAL HISTORY OF NICOTINE DEPENDENCE (3) History of cannabis abuse Status: Acute Code(s): F12.11 - CANNABIS ABUSE, IN REMISSION (4) History of miscarriage Status: Acute Code(s): Z87.59 - PERSONAL HISTORY OF COMP OF PREG, CHLDBRTH AND THE PUERP (5) Bipolar disorder Status: Acute Code(s): F31.9 - BIPOLAR DISORDER, UNSPECIFIED (6) History of seizure disorder Status: Acute Code(s): Z86.69 - PERSONAL HISTORY OF DIS OF THE NERVOUS SYS AND SENSE ORGANS Disposition: Patient is a 30 y/o female at 38.3W EGA by LMP, consistent with 2T US, who presents to L&D for rCSx due to concerns of IUGR. 1. Term Intrauterine (High Risk) -Patient appears well at this time - not in active labor -Maternal VSS with benign initial physical exam - although multiple SBPs recorded in the 140s prior to arrival to OR -FHTs in the 140s with accelerations present, no decels - intermittent, painless CTX -LR @ 125 ml/hr -Anesthesia: Consulted, aware -Baseline L&D Labs: Pending -Pre-E Labs: Pending -See #2, #3, #4, #5, #6 2. History of Tobacco Abuse -Will continue to encourage Tobacco Abuse Cessation and secondhand smoke avoidance throughout hospitalization 3. History of Cannabis Abuse -UDS: Pending -Meconium Drug Screen: Pending -Case Management Consult: Pending 4. Bipolar Disorder -Patient does not appear actively manic / depressed -Continue to monitor closely -Plan for [place] Depression Scale at initial Visit 5. History of Seizure Disorder -Per patient, no seizures in >24M despite no medication -Patient received high-dose Folic Acid during 1T -Plan to monitor BP closely during intrapartum / period 6. Hx of HSV(+) Testing -Patient denies known vaginal outbreaks -No active lesions noted on intake exam 7. Hx of Asthma -Avoid Hemabate if Hemorrhage occurs Code: Full Diet: NPO Activity: Bed Rest VTE PPx: SCDs IVF: LR @ 125 ml/hr Dispo: Will admit patient to L&D for rCSx with planned routine care except as per above. Expected LOS < 48H Discussion: Date/Time: 03/18/20629 This H&P was discussed with [] and [] who agree with the above documentation and plan. Addendum - Attending - Attending Attestation Date/Time: 03/18/20658 I personally evaluated the patient and discussed the management with Dr. Teague I agree with the History, Examination, Assessment and Plan documented above with any addition or exceptions noted below. 30 yo female at 38.3 wks by LMP/8.4 wk sono admitted for repeat LTCS for gHTN and IUGR vs SGA Complications in include: LTCS, IUGR vs SGA, poor follow up, gHTN, marijuana use, hx of SGA , hx of seizure d/o, mild intermittent asthma, HSV IgG 1&2 positive (no known outbreaks), GBS pos, tobacco use HSV IgG positive - no prodrome symptoms. has been on ppx. no prior hx of lesions /outbreak R/B/A discussed. Questions answered. Will proceed to OR when ready. Joanne
[2020-03-18 07:05] LABS: Hemoglobin 10.5 g/dL (12.0-16.0); Mean Corpuscular HGB CONC 34.9 g/dL (32.0-36.0); Mean Corpuscular Hemoglobin 35.6 pg (27.0-31.0); Mean Platelet Volume 7.7 fL (7.4-10.4); Platelet Count 250 thou/uL (130-400); RBC Distribution Width 11.8 % (11.5-14.5); Red Blood Cell (RBC) Count 2.94 mill/uL (4.20-5.40); White Blood Cell (WBC) Count 7.6 thou/uL (4.8-10.8)
[2020-03-18] MEDS ORDERED: MORPHINE 5 MG/10 ML PF VIAL ONE (07:41)
[2020-03-18] MEDS ORDERED: EPHEDRINE 25 MG/5 ML SYRINGE ONE ×2 (07:41→08:07)
[2020-03-18] MEDS ORDERED: PHENYLEPHRINE-NS 100 MCG/ML 10 ML SYRINGE ONE (07:41)
[2020-03-18 07:48] LABS: HBSAg Index 0.16 S/CO (0-0.99); Hep B Surf Ag Non-Reactive S/CO (NonReactive)
[2020-03-18 08:06] LABS: ALT (SGPT) Less than 7 U/L (8-55); AST (SGOT) 12 U/L (5-34); Albumin 3.6 g/dL (3.5-5.0); Alkaline Phosphatase 78 U/L (40-110); Anion Gap 12 mmol/L (10-20); BUN (Urea Nitrogen) 8 mg/dL (7.0-18.7); Bilirubin, Total 0.3 mg/dL (0.2-1.2); Calc. Creatinine Clearance 122 mL/min (70-130); Calcium 8.6 mg/dL (7.8-10.44); Carbon Dioxide 24 mmol/L (22-29); Chloride 105 mmol/L (98-107); Estimated GFR-MDRD Greater than 90; Globulin 2.7 g/dL (2.4-3.5); Glucose 69 mg/dL (70-105); Potassium 3.3 mmol/L (3.5-5.1); Protein, Total 6.3 g/dL (6.0-8.3); Sodium 138 mmol/L (136-145)
[2020-03-18] MEDS ORDERED: Oxytocin 10 UNITS/ML VIAL ONE ×2 (08:06→08:32)
[2020-03-18] MEDS ORDERED: Ketorolac Tromethamine 30 MG/ML VIAL ONE (08:07)
[2020-03-18 08:11] LABS: Syphilis Antibody Nonreactive (Nonreactive); Syphilis Antibody Index 0.04 S/CO (<1.00 Non-Reactive)
[2020-03-18] MEDS ORDERED: Ondansetron PF 4 MG/2 ML Vial ONE (08:23)
[2020-03-18] MEDS ORDERED: Fentanyl 100 MCG/2 ML VIAL ONE (08:30)
[2020-03-18 08:45] LABS: Amphetamine Not Detected (NotDetected); Barbiturates Screen Not Detected (NotDetected); Benzodiazepine Screen Not Detected (NotDetected); Cocaine Metabolite Screen Not Detected (NotDetected); Medtox Control Line Valid? VALID (VALID); Medtox Reader # READER 1; Methadone Not Detected (NotDetected); Methamphetamine Not Detected (NotDetected); Opiate Screen Not Detected (NotDetected); Oxycodone Screen Not Detected (NotDetected); Phencyclidine (PCP) Not Detected (NotDetected); THC/Cannabinoid Screen Not Detected (NotDetected); Tricyclic Screen Not Detected (NotDetected)
[2020-03-18] MEDS ORDERED: Midazolam HCl 2 mg/2 ml Vial ONE (08:58)
[2020-03-18] MEDS ORDERED: diphenhydrAMINE 50 MG/ML VIAL ONE ×2 (09:23→09:43)
[2020-03-18 09:50] LABS: Creatinine, Urine 130.01 mg/dL (47-110)
[2020-03-18] MEDS ORDERED: Ondansetron HCl/PF 4 MG/2 ML Vial IVP PRN (10:00)
[2020-03-18] MEDS ORDERED: Meperidine HCl/PF 25 MG/ML VIAL SLOW IVP PRN (10:00)
[2020-03-18] MEDS ORDERED: Promethazine HCl 25 MG/ML VIAL IM PRN (10:00)
[2020-03-18] MEDS ORDERED: Communication Order-Pharmacy FS SCH (10:00)
[2020-03-18] MEDS ORDERED: Ketorolac Tromethamine 30 MG/ML VIAL IVP SCH (10:00)
[2020-03-18] MEDS ORDERED: Naloxone HCl 0.4 mg/ml Vial IVP PRN ×2 (10:00)
[2020-03-18] MEDS ORDERED: Promethazine HCl 25 MG SUPP PR PRN (10:00)
[2020-03-18] MEDS ORDERED: L&D-Morphine 4 MG/ML VIAL SLOW IVP PRN (10:00)
[2020-03-18] MEDS ORDERED: Naloxone HCl 0.4 mg/ml Vial IV PRN (10:00)
[2020-03-18] MEDS ORDERED: HYDROmorphone 2 MG/ML VIAL SLOW IVP PRN (10:00)
[2020-03-18] MEDS ORDERED: Milk Of Magnesia 30 ML UDCUP PO PRN (11:49)
[2020-03-18] MEDS ORDERED: Lanolin Ointment 7 GM TUBE TOP PRN (11:49)
[2020-03-18] MEDS ORDERED: Acetaminophen 325 MG TAB PO PRN (11:49)
[2020-03-18] MEDS: diphenhydrAMINE 50 MG/ML VIAL IVP PRN (13:05)
--- NOTE | 2020-03-18 17:08 | PDOC.BPN ---
<Emma Boone - Last Filed: 03/18/20 17:08> - Brief Progress Note 30 yo s/p rLTCS Reports that she is feeling well. Says that she is experiencing minimal pain. Tolerating PO intake of clear fluids. PE: BP 127/63 P 56 R 18 T 97.6 Bandage dry, clean. No sings of incarcerated hernia No signs of hematoma Appropriately tender to palpation. No respiratory distress. A/P 30 G2 now P2 s/p rLTCS s/p rLTCS -QBL: 985 post op -pain well controlled, tolerating clear liquids -normal post-delivery bleeding -will continue to monitor for hematoma, if suspicious will order CBC, PT/PTT, U/ S -will continue to monitor her BP gHTN -normal post-op pressures -will continue to monitor <Ariane Rosa - Last Filed: 03/26/20 14:06> - Brief Progress Note Attending Note: Agree with above. Asymptomatic anemia. Monitor for symptoms. Currently no concerns for continued bleeding. No evidence of progression of gHTN since delivery. Joanne
[2020-03-18] MEDS: Ketorolac Tromethamine 30 MG/ML VIAL IVP PRN (20:29)
[2020-03-18] MEDS: Simethicone Chewable 80 MG TAB PO PRN (20:29)
[2020-03-18] MEDS: Ferrous Sulfate 325 MG TAB PO SCH (23:56)
[2020-03-19] MEDS: Ketorolac Tromethamine 30 MG/ML VIAL IVP PRN (03:07)
[2020-03-19] MEDS: Simethicone Chewable 80 MG TAB PO PRN ×3 (03:07→19:50)
[2020-03-19] MEDS: HYDROcodone/Acetaminophen 5/325 mg Tablet PO PRN ×2 (03:09→19:50)
--- NOTE | 2020-03-19 04:56 | PDOC.OBPPN ---
FMR OB PN: Subj - Interval History Hospital Day: 2 Day: 1 Chief Complaint: Post-Op Day #1 s/p rCSX Indentification: Interval History: None FMR OB PN: Obj - Maternal Vital signs: BP: [] HR: [] RR: [] Tmax: [] Pox: []% on [] Wt: [] - Urine output I&O: 03/17/20 03/18/20 03/19/20 06:59 06:59 06:59 Intake Total 840 Output Total 1440 Balance -600 - Lochia Lochia: Minimal - Pain Management Pain scale: 0 Intervention: oral medication FMR OB PN: Exam - Physical Exam General: NAD, awake, alert and oriented HEENT: PERRLA, EOMI, MMM, conjunctiva clear, no scleral icterus, grossly normal vision, grossly normal hearing, normal nasal mucosa, oropharynx clear, good dention Neck: supple, FROM, trachea midline, no LAD Chest: non-tender to palpation, no lesions Breast: symmetric Heart: RRR, no murmurs/rubs/gallops, pulses present, no edema Deviation from normal: 2/6 Systolic Murmur - Stable General: CTAB, no respiratory distress, good air movement, no rales/rhonchi, no wheezing, no retractions Abdomen: non-tender, bowel sound present Musculoskeletal: pulses present, FROM in all four extremities, no misalignment/ asymmetry Neurological: no focal deficit Skin: no rash, no jaundice : bandage intact, incision healing well, no erythema, no edema, no drainage, appropriately tender Lymphatic: no unusual bruising or bleeding, no purpura, no petechia, no LAD Psychiatric: intact recent and remote memory, good judgement and insight, normal mood and affect FMR OB PN: Data - Labs Lab results: Laboratory Results - last 24 hr 03/18/20 03/18/20 03/18/20 06:53 06:53 06:53 WBC RBC Hgb Hct MCV MCH MCHC RDW Plt Count MPV Sodium Potassium Chloride Carbon Dioxide Anion Gap BUN Creatinine Estimated GFR (MDRD) Glucose Calcium Total Bilirubin AST ALT Alkaline Phosphatase Serum Total Protein Albumin Globulin Albumin/Globulin Ratio U Random Total Protein Urine Creatinine Urine Opiates Screen Not Detected Ur Oxycodone Screen Not Detected Urine Methadone Screen Not Detected Ur Propoxyphene Screen Not Detected Ur Barbiturates Screen Not Detected Ur Tricyclics Screen Not Detected Ur Phencyclidine Scrn Not Detected Ur Amphetamines Screen Not Detected U Methamphetamines Scrn Not Detected U Benzodiazepines Scrn Not Detected U Cocaine Metab Screen Not Detected U Cannabinoids Screen Not Detected Drug Screen Comment Syphilis IgG/IgM Ab Nonreactive Hep Bs Antigen Non-Reactive Blood Type Antibody Screen 03/18/20 03/18/20 03/18/20 06:53 06:53 06:53 WBC 7.6 RBC 2.94 L Hgb 10.5 L Hct 30.0 L MCV 102.0 H MCH 35.6 H MCHC 34.9 RDW 11.8 Plt Count 250 MPV 7.7 Sodium 138 Potassium 3.3 L Chloride 105 Carbon Dioxide 24 Anion Gap 12 BUN 8 Creatinine 0.75 Estimated GFR (MDRD) Greater than 90 Glucose 69 L Calcium 8.6 Total Bilirubin 0.3 AST 12 ALT Less than 7 L Alkaline Phosphatase 78 Serum Total Protein 6.3 Albumin 3.6 Globulin 2.7 Albumin/Globulin Ratio 1.3 U Random Total Protein Urine Creatinine Urine Opiates Screen Ur Oxycodone Screen Urine Methadone Screen Ur Propoxyphene Screen Ur Barbiturates Screen Ur Tricyclics Screen Ur Phencyclidine Scrn Ur Amphetamines Screen U Methamphetamines Scrn U Benzodiazepines Scrn U Cocaine Metab Screen U Cannabinoids Screen Drug Screen Comment Syphilis IgG/IgM Ab Hep Bs Antigen Blood Type O POSITIVE Antibody Screen NEGATIVE 03/18/20 06:53 WBC RBC Hgb Hct MCV MCH MCHC RDW Plt Count MPV Sodium Potassium Chloride Carbon Dioxide Anion Gap BUN Creatinine Estimated GFR (MDRD) Glucose Calcium Total Bilirubin AST ALT Alkaline Phosphatase Serum Total Protein Albumin Globulin Albumin/Globulin Ratio U Random Total Protein 17 H Urine Creatinine 130.01 H Urine Opiates Screen Ur Oxycodone Screen Urine Methadone Screen Ur Propoxyphene Screen Ur Barbiturates Screen Ur Tricyclics Screen Ur Phencyclidine Scrn Ur Amphetamines Screen U Methamphetamines Scrn U Benzodiazepines Scrn U Cocaine Metab Screen U Cannabinoids Screen Drug Screen Comment Syphilis IgG/IgM Ab Hep Bs Antigen Blood Type Antibody Screen FMR OB PN: A/P - Problem List (1) High-risk Status: Acute Code(s): O09.90 - SUPERVISION OF HIGH RISK , UNSP, UNSP TRIMESTER (2) History of tobacco abuse Status: Acute Code(s): Z87.891 - PERSONAL HISTORY OF NICOTINE DEPENDENCE (3) History of cannabis abuse Status: Acute Code(s): F12.11 - CANNABIS ABUSE, IN REMISSION (4) History of miscarriage Status: Acute Code(s): Z87.59 - PERSONAL HISTORY OF COMP OF PREG, CHLDBRTH AND THE PUERP (5) Bipolar disorder Status: Acute Code(s): F31.9 - BIPOLAR DISORDER, UNSPECIFIED (6) History of seizure disorder Status: Acute Code(s): Z86.69 - PERSONAL HISTORY OF DIS OF THE NERVOUS SYS AND SENSE ORGANS (7) Asthma Status: Acute Code(s): J45.909 - UNSPECIFIED ASTHMA, UNCOMPLICATED (8) Gestational hypertension Status: Acute Code(s): O13.9 - GESTATIONAL HTN W/O SIGNIFICANT PROTEINURIA, UNSP TRIMESTER Disposition: Patient is a 30 y/o female at 38.3W EGA by LMP, consistent with 2T US, who presented to L&D for rCSx due to concerns of IUGR. 1. Term Intrauterine (High Risk), Delivered -Post-Op Day #1 s/p rCSX -Per chart review, QBL upper limit of normal (985 ml) w/o intra-operative or post-op complications noted -Maternal VSS since delivery - no elevated BPs documented -Pain adequately controlled with [place] 5/325 and Toradol -Physical exam unremarkable with well-healing surgical incision -See #2-8 2. Gestational HTN -Following initial evaluation during admission and throughout delivery BP remained mild range -Protein/Creatinine Ratio: 0.130 -No elevated BPs documented since delivery w/o worrisome signs or symptoms -Will continue to monitor closely -Hydralazine PRN 3. History of Seizure Disorder -Per patient, no seizures in >24M despite no medication -Patient received high-dose Folic Acid during 1T -No new neurologic symptoms since delivery -Will continue to monitor BP closely -See #2 4. History of Cannabis Abuse -Maternal UDS: Negative -[place] UDS: +Methamphetamines -Case Management Consult: Pending 5. History of Tobacco Abuse -Will continue to encourage Tobacco Abuse Cessation and secondhand smoke avoidance throughout hospitalization 6. Bipolar Disorder -Patient does not appear actively manic / depressed -Continue to monitor closely -Plan for [place] Depression Scale at initial Visit 7. Hx of HSV(+) Testing -Patient denies known vaginal outbreaks -No active lesions noted on intake exam 8. Hx of Asthma -Well-controlled - will continue to monitor respiratory status closely Code: Full Diet: Full Activity: Ad Romelia VTE PPx: None IVF: None Dispo: Patient appears well at this time with no complaints following rCSX. Will plan to advance diet as tolerated, monitor BP closely and ensure adequate pain control as per above. Expected LOS < 48H Discussion: Date/Time: 03/19/20 0590 This H&P was discussed with [] and [] who agree with the above documentation and plan. Addendum - Attending - Attending Attestation Date/Time: 03/19/20 0908 I personally evaluated the patient and discussed the management with Dr. Teague I agree with the History, Examination, Assessment and Plan documented above with any addition or exceptions noted below. POD/PPD#1 Doing well. Evidence of significant blood loss. Patient remains asymptomatic. VS stable. No tachycardia or hypotension. Negative exam. Will order US just to make sure no complications with hematoma in muscle belly or beyond. Add coag studies. Continue to monitor throughout the day. Discussed options. Patient would like to receive iron infusion prior to d/c. Will start today. Continue routine pp care otherwise. Joanne
[2020-03-19 06:08] LABS: Hemoglobin 6.2 g/dL (12.0-16.0); Mean Corpuscular HGB CONC 34.2 g/dL (32.0-36.0); Mean Corpuscular Hemoglobin 35.4 pg (27.0-31.0); Mean Platelet Volume 7.1 fL (7.4-10.4); Platelet Count 173 thou/uL (130-400); RBC Distribution Width 11.9 % (11.5-14.5); Red Blood Cell (RBC) Count 1.75 mill/uL (4.20-5.40)
[2020-03-19] MEDS ORDERED: Adacel (T-DAP) 0.5 ML SYRINGE IM ONE (09:00)
[2020-03-19] MEDS: Polyethylene Glycol 3350 17 GM Packet PO SCH (09:17)
[2020-03-19] MEDS: Ferrous Sulfate 325 MG TAB PO SCH ×2 (09:17→19:49)
[2020-03-19] MEDS: Prenatal Vitamin 1 TAB PO SCH (09:18)
[2020-03-19 10:14] LABS: Fibrinogen 281 mg/dL (253-463)
[2020-03-19 10:15] LABS: INR-International Normal Ratio 1.1; PTT 32.7 sec (22.9-36.1); Prothrombin Time 13.8 sec (12.0-14.7)
[2020-03-19 10:16] LABS: D-Dimer Test 3.83 *mcg/mL (0.27-0.43)
[2020-03-19 10:18] LABS: Platelet Count 170 thou/uL (130-400)
[2020-03-19 10:19] LABS: Anion Gap 7 mmol/L (10-20); BUN (Urea Nitrogen) 6 mg/dL (7.0-18.7); Calc. Creatinine Clearance 134 mL/min (70-130); Calcium 7.7 mg/dL (7.8-10.44); Carbon Dioxide 28 mmol/L (22-29); Chloride 103 mmol/L (98-107); Estimated GFR-MDRD Greater than 90; Glucose 89 mg/dL (70-105); Potassium 3.2 mmol/L (3.5-5.1); Sodium 135 mmol/L (136-145)
[2020-03-19 10:31] LABS: FSP-Qualitative ABNORMAL (Normal)
[2020-03-19 10:32] LABS: FSP-Semiquantitative >=5 & <20 mcg/mL (Less than 5)
--- NOTE | 2020-03-19 10:52 | PDOC.BPN ---
<Ayesha Patrick - Last Filed: 03/19/20 10:48> - Brief Progress Note Patient noted to have Hemoglobin drop from 10.5 to 6.2, based on calculation of total QBL patient has approximately 800 mL unaccounted for. Obtained abdominal ultrasound with partial images reviewed and report is still pending. CBC, DIC panel, BMP reviewed. Patient does not appear to be actively bleeding. Will plan to order iron infusion at this time. Instructed nursing staff to give Benadryl and Tylenol prior to infusion. Patient prefers to not be given blood products. <Ariane Rosa - Last Filed: 03/26/20 14:37> - Brief Progress Note Attending Note: Agree with above. Continue close monitoring. Joanne
[2020-03-19] MEDS ORDERED: Iron, Sodium Ferric Gluconate 250 MG in Sodium Chloride 0.9% 100 ML IVPB SCH (11:15)
[2020-03-19] MEDS ORDERED: Sodium Chloride 0.9% 10 ML ONE ×2 (11:24→13:51)
[2020-03-19] MEDS: diphenhydrAMINE 50 MG/ML VIAL IVP PRN (11:31)
--- NOTE | 2020-03-19 11:58 | ULT ---
US Abdomen Limited History: hemorrhage versus hematoma Comparison: None. Findings: Real-time grayscale color and spectral analysis of the uterus was performed. Low anterior scar along the lower uterine body. Large hematoma between the anterior abdomin al wall and the anterior uterine serosa measuring at least 12 cm in craniocaudal dimension with a transverse width of at least 30 cm. The hematoma was too large to see in a single ultrasound field of view. No retained products of conception. Endometrial cavity appears relatively normal. Impression: Large extrauterine hematoma between the anterior abdominal wall and anterior uterine sero sa.
[2020-03-19] MEDS: Ibuprofen 800 MG TAB PO SCH ×2 (14:03→21:06)
--- NOTE | 2020-03-20 01:39 | OP ---
DATE OF PROCEDURE: 03/18/2020 RESIDENT SURGEONS: 1. Princess Lucas MD, PGY-3. 2. Ayesha Patrick DO, PGY-2. CUT PLUG PACKER SURGEON: Emma Boone, PGY-1. PROCEDURE PERFORMED: Repeat low-transverse . PREOPERATIVE DIAGNOSES: 1. Term intrauterine . 2. intrauterine growth restriction. 3. Previous . 4. History of tobacco abuse. 5. History of cannabis abuse. 6. Bipolar disorder. 7. History of seizure disorder. 8. 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 9. History of asthma. POSTOPERATIVE DIAGNOSES: 1. Previous . 2. History of tobacco abuse. 3. History of cannabis abuse. 4. Bipolar disorder. 5. History of seizure disorder. 6. 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 7. History of asthma. ANESTHESIA: Spinal. INDICATIONS: The patient is a 30-year-old G3, P1-0-1-1 at 38.3 weeks gestation who presents for repeat scheduled . PROCEDURE IN DETAIL: After risks, benefits, and alternatives were explained to the patient, she gave informed consent. Preoperative antibiotics included cefazolin 2 g IV. The patient was taken to the operating room and spinal anesthesia was initiated. She was placed in the supine position with a left tilt and prepped and draped in the usual sterile fashion. A Pfannenstiel incision was made with a scalpel and carried down to the level of the fascia, which was sharply nicked. The fascial cut was extended bilaterally with Lee scissors. The inferior and superior edges of the cut fascial edges were elevated with Сергей clamps and the underlying rectus muscles were sharply and bluntly dissected free. The recti were divided digitally and retracted manually. The peritoneum was entered bluntly and retracted manually. Isaiah O was placed. A low-transverse score was made with a scalpel and the uterus was entered in the midline with a scalpel. Allis clamp was used to rupture. Clear fluid was seen. The hysterotomy was extended manually. The infant was noted to be vertex and easily delivered by fundal pressure. The mouth and nares were bulb suctioned. We had cord, clamped and cut, and grossly normal male infant was handed to waiting nurse. Cord blood was obtained. Placenta was expectantly extracted and found to be intact with 3-vessel cord and sent to pathology. The uterus was externalized, and the endometrium was curetted with a dry lap. That was noted to be an area of bleeding on the left side of the hysterotomy, ring forceps were applied and this was noted to be hemostatic after. The uterus was closed with running locking 1 Monocryl suture followed by a [id number] in the midline that was not hemostatic, which was hemostatic afterwards. There was an area on the anterior aspect of the uterus that was noted to be bleeding and was closed with Vicryl suture. This was noted to be hemostatic afterwards. The abdomen was suctioned free of clots. The uterus was internalized. The hysterotomy was again inspected and noted to have some bleeding from the right edge of the hysterotomy. Monocryl suture was used in a [id number] fashion to obtain hemostasis. Pantera placed. The rectus muscles were inspected and noted to be hemostatic after Bovie cautery. Pantera placed. The fascia was closed with 0-PDS x2 suture. The subcu tissue was irrigated and bleeders were cauterized. Subcu was closed using 2-0 plain gut. The skin was approximated with 4-0 Monocryl and pressure dressing was placed. All counts were correct. The patient tolerated the procedure well, was taken to the recovery room in stable condition. EBL: 985 mL. COMPLICATIONS: None. SPECIMENS: Cord blood sent to lab for blood type. FINDINGS: 1. Grossly normal male infant with Apgars of 8 and 9. 2. Grossly normal placenta with three vessel cord sent for pathology. DRAINS: Langley to gravity, draining clear fluid. Attending Note: I was present and participated in the above document procedure. Uncomplicated entry other than adhesions of rectus to fasica. delivered without complications. Areas of hemorrhage to hysterotomy improved with suture and Pantera. Routine recovery then transfer to . Joanne Job ID: [id number] [facility]
--- NOTE | 2020-03-20 04:12 | PDOC.PP ---
Post Progress Note Post Day #: 2 Subjective: Pain well controlled. Bottle feeding. Ambulating, tolerating PO. Minimal amount of lochia. Reports constipation after iron infusion, took MOM yesterday with BM following. PO intake tolerated: yes Flatus: yes Ambulation: yes Vital Signs (12 hours) Temp Pulse Resp BP 03/20/20 00:25 98.6 F 82 16 128/71 03/19/20 19:50 98.3 F 72 16 141/67 H Weight Weight 70.307 kg - Physical Examination General: NAD Cardiovascular: no m/r/g, RRR Respiratory: clear to auscultation bilaterally, non-labored breathing Abdominal: + bowel sounds, appropriately TTP Fundus firm & at: below umbilicus Skin: CS incision dry & intact Neurological: no gross focal deficits Psychiatric: A&Ox3, normal affect Result Diagrams: 03/19/20 09:51 03/19/20 09:51 Additional Labs: Post Labs Blood Type O POSITIVE 03/18/20 06:53 Hep Bs Antigen Non-Reactive S/CO (NonReactive) 03/18/20 06:53 - Assessment/Plan 30yo delivered via rL 38.3wks sIUP, delivered - POD#2 - Continue routine care - Total QBL: 1338 - F/u at [facility] in 1 wk due to gHTN PPH - Total QBL 1338 - Received iron infusion yesterday. Continue PO iron and stool softeners - Hgb 10.5-> 6.2. Declined transfusion. - Asymptomatic, continue to monitor Gestational HTN - BPs <140/90 History of Seizure Disorder -Per patient, no seizures in >24mo despite no medication History of Cannabis Abuse - Maternal UDS: Negative - UDS: + Methamphetamines - Case Management Consulted History of Tobacco Abuse Bipolar Disorder - Stable - Brick Depression Scale at initial Visit HSV 1/2 positive Hx of Asthma Dispo: likely d/c home today
[2020-03-20] MEDS: Ibuprofen 800 MG TAB PO SCH (05:22)
[2020-03-20] MEDS: HYDROcodone/Acetaminophen 5/325 mg Tablet PO PRN (05:22)
[2020-03-20] MEDS: Polyethylene Glycol 3350 17 GM Packet PO SCH (08:31)
[2020-03-20] MEDS: Ferrous Sulfate 325 MG TAB PO SCH (08:31)
[2020-03-20] MEDS: Prenatal Vitamin 1 TAB PO SCH (08:31)
[2020-03-20 09:48] VITALS: BP 132/69; TEMP 98.3
== END 2020-03-20 13:14 | disposition home or self-care (01) | DRG 787 ==
LOC: L&D 05:41 → 3SW 12:15
PROVIDERS: ADMIT Student in an Organized Health Care Education/Training Program; ATTEND Student in an Organized Health Care Education/Training Program
PROC: 10D00Z1 Extraction of Products of Conception, Low, Open Approach (ICD-10-PCS; principal; 2020-03-18)
DX: O34.211 Maternal care for low transverse scar from previous cesarean delivery (principal); O99.324 Drug use complicating childbirth; O98.52 Other viral diseases complicating childbirth; O99.354 Diseases of the nervous system complicating childbirth; O72.1 Other immediate postpartum hemorrhage; Z37.0 Single live birth; Z3A.38 38 weeks gestation of pregnancy; O36.5930 Maternal care for other known or suspected poor fetal growth, third trimester, not applicable or unspecified; F12.10 Cannabis abuse, uncomplicated; O99.334 Smoking (tobacco) complicating childbirth; B00.9 Herpesviral infection, unspecified; O99.52 Diseases of the respiratory system complicating childbirth; J45.909 Unspecified asthma, uncomplicated; F31.9 Bipolar disorder, unspecified; G40.909 Epilepsy, unspecified, not intractable, without status epilepticus; O13.4 Gestational [pregnancy-induced] hypertension without significant proteinuria, complicating childbirth
CPT/HCPCS: 36415; 51702; 76705; 80048; 80053; 80306; 82570; 84156; 85027; 85049; 85300; 85362; 85379; 85384; 85610; 85730; 86780; 86850; 86900; 86901; 87340; 88307; J0690; J1200; J1885; J2250; J2274; J2405; J2590; J2916; J3010; J3490

== ENCOUNTER 2020-03-27 18:19 | Observation (INO) | payer OTHER ==
[2020-03-27 20:49] LABS: Hemoglobin 7.3 g/dL (12.0-16.0); Mean Corpuscular Hemoglobin 35.8 pg (27.0-31.0); RBC Distribution Width 12.2 % (11.5-14.5); Red Blood Cell (RBC) Count 2.05 mill/uL (4.20-5.40); White Blood Cell (WBC) Count 11.8 thou/uL (4.8-10.8)
[2020-03-27 20:52] LABS: #Basophils 0.1 thou/uL (0.0-0.2); #Eosinphils 0.3 thou/uL (0.0-0.7); #Lymphocytes 2.6 thou/uL (1.20-3.40); #Monocytes 1.3 thou/uL (0.11-0.59); #Neutrophils 7.5 thou/uL (1.40-6.50); %Basophils 0.7 % (0.0-1.0); %Eosinophils 2.6 % (0.0-10.0); %Lymphocytes 22.2 % (21.0-51.0); %Monocytes 10.8 % (0.0-10.0); %Neutrophils 63.8 % (42.0-75.0); Eosinophils 3 % (0-10); Lymphocytes 15 % (21-51); MDiff Complete? YES; Macrocytosis SLIGHT = 6-15 cells (100X) (0-5/hpf); Mean Platelet Volume 5.6 fL (7.4-10.4); Monocytes 6 % (0-10); Neutrophil 74 % (42-75); Platelet Count 470 thou/uL (130-400); Platelet Morphology Comment Appears Adequate; Poikilocytosis SLIGHT = 6-15 cells (100X) (0-5/hpf); Polychromasia SLIGHT = 2-3 cells (100X) (0-2/hpf)
--- NOTE | 2020-03-27 21:03 | ULT ---
EXAM: SOFT TISSUE ULTRASOUND LIMITED: 03/27/20 HISTORY: Follow-up hematoma at section site. Sagittal and transverse imaging of the anterior abdominal wall is performed. FINDINGS/IMPRESSION: At the incision site, there is mixed echotexture collection measuring 4.8 x 4.8 x 5.0 cm. Findings ma y represent a resolving hematoma. Infected fluid collection cannot be entirely excluded. Better inter rogation with abdomen and pelvic CT if clinically warranted. POS: PPP
[2020-03-27 22:29] LABS: Bacteria/HPF None Seen HPF (None Seen); Bilirubin Negative (Negative); Blood, Urine 3+ (Negative); Clarity Clear (Clear); Glucose, Urine (Dipstick) Normal (Negative); Ketone, Urine Negative (Negative); Leukocyte 75 Leu/uL (Negative); Nitrite Negative (Negative); Protein, Urine (Dipstick) 10 mg/dL (Neg-Trace); RBC/HPF 21-50 HPF (0-3); Specific Gravity, Urine 1.017 (1.002-1.036); Squamous Epithelial 0-3 HPF (0-3); Urobilinogen Normal mg/dL (Less than 2); pH, Urine 7.5 (5.0-9.0)
[2020-03-27 23:05] LABS: ALT (SGPT) 17 U/L (8-55); AST (SGOT) 19 U/L (5-34); Albumin 3.6 g/dL (3.5-5.0); Alkaline Phosphatase 57 U/L (40-110); Anion Gap 17 mmol/L (10-20); BUN (Urea Nitrogen) 10 mg/dL (7.0-18.7); Bilirubin, Total 0.5 mg/dL (0.2-1.2); Calc. Creatinine Clearance 0 mL/min (70-130); Calcium 8.4 mg/dL (7.8-10.44); Carbon Dioxide 20 mmol/L (22-29); Chloride 105 mmol/L (98-107); Estimated GFR-MDRD Greater than 90; Globulin 3.5 g/dL (2.4-3.5); Glucose 85 mg/dL (70-105); Potassium 4.1 mmol/L (3.5-5.1); Protein, Total 7.1 g/dL (6.0-8.3); Sodium 138 mmol/L (136-145)
[2020-03-27 23:43] LABS: Creatinine, Urine 95.95 mg/dL (47-110)
[2020-03-27] MEDS ORDERED: Ondansetron ODT 4 MG TAB PO PRN (23:44)
[2020-03-27] MEDS ORDERED: Acetaminophen 325 MG TAB PO PRN (23:44)
[2020-03-27] MEDS ORDERED: Ondansetron PF 4 MG/2 ML Vial IVP PRN (23:44)
[2020-03-27] MEDS ORDERED: hydrALAZINE 20 MG/ML VIAL SLOW IVP PRN (23:47)
[2020-03-27] MEDS ORDERED: Sodium Chloride 0.9% 20 ML ONE (23:53)
--- NOTE | 2020-03-27 23:53 | PDOC.FPRHP ---
- History of Present Illness Chief Complaint: Hematoma s/p History of Present Illness: Patient is a 30 year old female with a history of asthma, bipolar disorder , HSV, seziures, and drug use (marijuana, meth) who presents to the ED for repeat CBC and US as follow up for hematoma @ site. The patient underwent on 03/18/20 at 38.3wk for IUGR. During , patient experienced gestational HTN with BP < 140/90. Urine protein/creatinine ratio was 0.13. No concern for pre-eclampsia. At delivery, patient experienced hemorrhage with Hgb 6.2 and resulting iron transfusion. Of note, patient tested positive for marijuana and meth during . Today, she reports frustration over having to leave her child at home. She denies headache , dizziness, lightheadedness, vision changes, chest pain, palpitations, SOB, abdominal pain, and edema. She denies pain or redness at incision site. She is currently well without complaints. ED Course: In the ED, BP was initially 144/93 then increased to 170s/90s. Afebrile. Hgb 7.3. Hematoma unchanged in size, resolving. - Allergies/Adverse Reactions Allergies Allergy/AdvReac Type Severity Reaction Status Date / Time almond Allergy Severe Anaphylaxis Verified 03/27/20 23:35 - Home Medications Medication Instructions Recorded Confirmed Type Ferrous Sulfate [Feosol] 325 mg PO BID #60 tab 03/20/20 03/27/20 Rx Ibuprofen [Motrin] 800 mg PO Q8HR #20 tab 03/20/20 03/27/20 Rx Magnesium Hydroxide [Milk Of 30 ml PO DAILYPRN PRN #1 bot 03/20/20 03/27/20 Rx Magnesium] Multivit 47/Iron/Folate 1/Dha 1 each PO DAILY #30 capsule 03/20/20 03/27/20 Rx [Virt-Pn Dha Softgel] Acetaminophen [Tylenol Regular 650 mg PO Q4H PRN tab 03/28/20 Rx Strength] NIFEdipine [Procardia XL] 30 mg PO DAILY #14 tab 03/28/20 Rx - History PMHx: asthma, bipolar disorder, HSV1&2 without lesions, seizures, drug abuse PSHx: on 03/18/20 FHx: Noncontributory Social: [id number]-op-[id number] helps care for child. Previously smoked 1/2 ppd, quit during . Previous meth and marijuana use, tested positive during and on infant meconium. - Review of Systems General: denies: fever/chills, fatigue Eyes: denies: eye pain, vision changes ENT: denies: nasal congestion, rhinorrhea Respiratory: denies: cough, congestion, shortness of breath Cardiovascular: denies: chest pain, palpitation, edema Gastrointestinal: denies: nausea, vomiting, abdominal pain Genitourinary: denies: dysuria, polyuria Skin: denies: rashes, jaundice Musculoskeletal: denies: pain, tenderness Neurological: denies: seizure, weakness Psychological: denies: anxiety, depression - Vital signs BP: [179/97] HR: [79] RR: [17] Tmax: [99.9] Pox: [99]% on [RA] Wt: 70.3kg - Physical Exam Constitutional: NAD, awake, alert and oriented HEENT: normocephalic and atraumatic Neck: supple, trachea midline Chest: no-tender to palpation, no lesions Heart: RRR, normal S1/S2 -Heart: Systolic murmur Lungs: CTAB, no respiratory distress Abdomen: soft, non-tender, bowel sounds present Musculoskeletal: normal structure, ROM grossly normal Neurological: no focal deficit, CN II-XII intact Skin: capillary refill <2 seconds -Skin: Incision site healing appropriately, hematoma palpated along incision line Heme/Lymphatic: no unusual bruising or bleeding Psychiatric: normal mood and affect FMR H&P: Results - Labs Result Diagrams: 03/27/20 20:15 03/27/20 22:38 Lab results: WBC 11.8 thou/uL (4.8-10.8) H 03/27/20 20:15 Hgb 7.3 g/dL (12.0-16.0) L 03/27/20 20:15 Hct 21.5 % (36.0-47.0) L 03/27/20 20:15 MCV 105.0 fL (78.0-98.0) H 03/27/20 20:15 Plt Count 470 thou/uL (130-400) H 03/27/20 20:15 Neutrophils % 63.8 % (42.0-75.0) 03/27/20 20:15 Sodium 138 mmol/L (136-145) 03/27/20 22:38 Potassium 4.1 mmol/L (3.5-5.1) 03/27/20 22:38 Chloride 105 mmol/L (98-107) 03/27/20 22:38 Carbon Dioxide 20 mmol/L (22-29) L 03/27/20 22:38 BUN 10 mg/dL (7.0-18.7) 03/27/20 22:38 Creatinine 0.80 mg/dL (0.6-1.1) 03/27/20 22:38 Glucose 85 mg/dL (70-105) 03/27/20 22:38 Calcium 8.4 mg/dL (7.8-10.44) 03/27/20 22:38 Total Bilirubin 0.5 mg/dL (0.2-1.2) 03/27/20 22:38 AST 19 U/L (5-34) 03/27/20 22:38 ALT 17 U/L (8-55) 03/27/20 22:38 Alkaline Phosphatase 57 U/L (40-110) 03/27/20 22:38 Serum Total Protein 7.1 g/dL (6.0-8.3) 03/27/20 22:38 Albumin 3.6 g/dL (3.5-5.0) 03/27/20 22:38 Urine Ketones Negative mg/dL (Negative) 03/27/20 20:10 Urine Blood 3+ (Negative) A 03/27/20 20:10 Urine Nitrite Negative (Negative) 03/27/20 20:10 Ur Leukocyte Esterase 75 Gonzales/uL (Negative) A 03/27/20 20:10 Urine RBC 21-50 HPF (0-3) A 03/27/20 20:10 Urine WBC 11-20 HPF (0-3) A 03/27/20 20:10 Ur Squamous Epith Cells 0-3 HPF (0-3) 03/27/20 20:10 Urine Bacteria None Seen HPF (None Seen) 03/27/20 20:10 FMR H&P: A/P - Plan Elevated BP 2/2 possible chronic HTN vs. agitation Hx gestational HTN. BP 170s/90s. Asymptomatic. Urine protein/creatinine ratio normal at 0.16, previously 0.13 during delivery, therefore does not meet criteria for pre-eclampsia. Cause could be agitation related to ED and admission as the patient grew upset in the room upon hearing the news. Could also be development of chronic HTN. -Monitor BP overnight -Hydralazine PRN if SBP > 160 -UDS Anemia Hgb improved from 6.2 after delivery to 7.3. Likely due to iron deficiency and acute blood loss related to , however, given macrocytic nature will order folate/B12. -Folate/B12 level -Stable Hematoma at incision site -Stable in size Routine post care -Continue motrin PRN for pain -. Encouraged pumping to maintain adequate milk supply Code: FULL DVT Ppx: SCDs Dispo: admit to supply chain intern/women's service obs for BP monitor overnight, expected LOS< 48 hours FMR H&P: Upper Level - Plan Date/Time: 03/27/20 [id number] INiki, have evaluated this patient and agree with findings/plan as outlined by manufacturing intern resident. Pertinent changes/additions are listed here. 30 yo is admitted for HTN. rLTCS done on 03/20 @ 38.3 weeks for concern for IUGR. Patient has hx tobacco, drug use, bipolar, seizure disorder, HSV1/2, asthma. course complicated by PPH and anemia with post-op Hgb of 6.2. She declined transfusion. Did have an iron transfusion prior to discharge She did have gHTN that was consistently 140s systolic, did not require medications. Gen: NAD Heart: RRR, 2/6 systolic ejection murmur Lungs: CTAB Ext: no edema Elevated BP - With hx gHTN - BPs 170s systolic on admission, asymptomatic - Hydralazine prn SBP >160 - Urine Pr/Cr normal, 0.16 (was 0.13 on previous admission), CMP normal as well. Does not meet criteria for pre-E - Continue to monitor pressure overnight as they have not been elevated for >4 hours at this point, could be developing chronic HTN vs agitation. UDS pending, with prior hx drug abuse. Anemia - Iron deficiency and acute blood loss s/p . It is macrocytic though, consider folate/B12 studies - Stable, has increased since discharged. Reports compliance with home iron. Continue in addition to PNV PP care - Motrin prn pain - She is , encourage pumping IVF: SL Ppx: SCDs Dispo: admit to supply chain intern/women's service for observation, expected LOS<48 hours Addendum - Attending - Attending Attestation Date/Time: 03/28/20 1420 I personally evaluated the patient and discussed the management with Dr. Ramirez last night. I agree with the History, Examination, Assessment and Plan documented above with any addition or exceptions noted below.
[2020-03-28] MEDS ORDERED: Ibuprofen 800 MG TAB PO PRN (01:14)
[2020-03-28] MEDS ORDERED: Milk Of Magnesia 30 ML UDCUP PO PRN (01:14)
[2020-03-28] MEDS ORDERED: hydrALAZINE 20 MG/ML VIAL SLOW IVP PRN (02:11)
--- NOTE | 2020-03-28 07:08 | PDOC.FM ---
Addendum entered and electronically signed by Dominique Mondragon MD 03/28/20 08:20 : A/P: -Abdominal hematoma: Resolving on repeat U/S. Hb improved as well. Abd non tender. No vaginal bleeding. Voiding and stooling normally. Original Note: - Subjective Subjective: Patient given 10mg hydralazine last night for severe SBP in 160s. Denies VAZQUEZ, vision changes, chest pain, LE edema. Also had temp 100.2, felt warm but denies chills or feeling unwell overall. Denies recent drug use but did have a shot of alcohol yesterday. Ambulating without lightheadedness or dizziness - Objective MAR Reviewed: Yes Vital Signs & Weight: Vital Signs (12 hours) Temp Pulse Resp BP BP Pulse Ox 03/28/20 04:35 100.2 F H 72 16 154/84 H 03/28/20 02:30 99.8 F H 68 16 147/66 H 03/28/20 01:50 71 160/83 H 03/28/20 01:15 83 180/94 H 03/28/20 00:40 64 175/81 H 03/28/20 00:15 65 174/81 H 03/27/20 23:40 62 180/83 H 03/27/20 23:20 100.3 F H 70 16 168/97 H 99 Result Diagrams: 03/27/20 20:15 03/27/20 22:38 Phys Exam - Physical Examination Constitutional: NAD HEENT: PERRLA, moist MMs, sclera anicteric Neck: full ROM Respiratory: no wheezing, clear to auscultation bilateral Cardiovascular: RRR, no significant murmur Gastrointestinal: soft, non-tender incision clean, dry, intact no erythema Musculoskeletal: no edema Neurological: non-focal, moves all 4 limbs Psychiatric: normal affect, A&O x 3 Skin: cap refill <2 seconds Dx/Plan - Plan Plan: Elevated BP - With hx gHTN - Urine Pr/Cr normal, 0.16 (was 0.13 on previous admission), CMP normal as well. Does not meet criteria for pre-E - Required 10mg hydralazine. UDS pending, with prior hx drug abuse. - Will start on procardia XL as could be developing early cHTN but too early for dx - Monitor BPs this AM to see if tolerates - Pending lunchtime discharge Elevated temperature -100.2, pt feels well -No signs of infection -Discussed return precautions for fever and signs of infetion or not feeling well Anemia - Iron deficiency and acute blood loss s/p . It is macrocytic though, adding folate/B12 studies - Stable, has increased since discharged. Reports compliance with home iron. Continue in addition to PNV PP care - Motrin prn pain - She is , encourage pumping IVF: SL Ppx: SCDs Dispo: Likely home today after labs reviewed and procardia given. Discussed moving up appoint with [facility] to this week. Pt has BP cuff her mother in law will bring that she can access and will have help using. Plans to record daily BPs and will bring it to [facility] this week. Discussed hypotensive and hypertensive precuations. Pending procardia toleration, will send to pharmacy. Pending UDS and b9/b12 Addendum - Attending - Attending Attestation Date/Time: 03/28/20 2881 I personally evaluated the patient and discussed the management with Dr. Mondragon this morning. I agree with the History, Examination, Assessment and Plan documented above with any addition or exceptions noted below.
[2020-03-28] MEDS ORDERED: Ferrous Sulfate 325 MG TAB PO SCH (08:00)
[2020-03-28 08:44] VITALS: TEMP 99.6
[2020-03-28] MEDS ORDERED: NIFEdipine XL 30 MG TAB PO SCH (09:00)
[2020-03-28] MEDS ORDERED: Prenatal Vitamin 1 TAB PO SCH (09:00)
[2020-03-28 11:54] VITALS: BP 146/80
[2020-03-28 12:30] LABS: Amphetamine Not Detected (NotDetected); Barbiturates Screen Not Detected (NotDetected); Benzodiazepine Screen Not Detected (NotDetected); Cocaine Metabolite Screen Not Detected (NotDetected); Medtox Control Line Valid? VALID (VALID); Medtox Reader # READER 4; Methadone Not Detected (NotDetected); Methamphetamine Not Detected (NotDetected); Opiate Screen Not Detected (NotDetected); Oxycodone Screen Not Detected (NotDetected); Phencyclidine (PCP) Not Detected (NotDetected); THC/Cannabinoid Screen Detected (NotDetected); Tricyclic Screen Not Detected (NotDetected)
[2020-03-28 13:44] LABS: SARS-CoV-2 MS2 Positive; SARS-CoV-2 N Gene Negative; SARS-CoV-2 S Gene Negative; SARS-CoV-2 by NAA Not Detected (NotDetected); SARS-CoV-2 orf1ab Negative
--- NOTE | 2020-03-29 17:29 | DIS ---
DATE OF ADMISSION: 03/27/2020 DATE OF DISCHARGE: 03/28/2020 ADMITTING ATTENDING: Mati Armas MD DISCHARGE ATTENDING: Mati Armas MD RESIDENT: Dominique Mondragon MD, PGY-3 CONSULTS: None. PROCEDURES: None. IMAGIN. Abdominal ultrasound on 03/27/2020: At incision site, mixed echotexture collection measuring 4.8 x 4.8 x 5.8 cm. May represent resolving hematoma. 2. Abdominal ultrasound on 03/19/2020: Large extrauterine hematoma between anterior abdominal wall and anterior uterine serosa measuring at least 12 cm in craniocaudal dimension with transverse width of 30 cm. PRIMARY DIAGNOSES: 1. Elevated blood pressure, preeclampsia ruled out. 2. Postoperative hematoma, resolving. 3. Anemia secondary to above. 4. Cannabis abuse. SECONDARY DIAGNOSES: 1. Postoperative low transverse and repair. 2. Anemia. DISCHARGE MEDICATIONS: 1. Ibuprofen 800 mg p.o. q.8 hours. 2. Milk of magnesia. 3. Ferrous sulfate 325 mg p.o. b.i.d. 4. vitamins. 5. Acetaminophen 650 mg p.o. q.4 hours p.r.n. New medications include nifedipine 30 mg p.o. daily. DISCONTINUED MEDICATIONS: None. HISTORY OF PRESENT ILLNESS/HOSPITAL COURSE: Ms Sosa Chao is a 30-year-old, G2 , P2, with extensive history of asthma, bipolar disorder, HSV, seizure, and drug use, who presented to the ER for followup of a hematoma. She recently underwent a scheduled low-transverse on 03/18/2020 for IUGR. During that course, she did experience a drop in her hemoglobin to 6.2, but declined blood transfusion since she clinically felt well. She agreed to and received an iron infusion prior to discharge. There was an abdominal ultrasound obtained that was followed up on afterwards that did show a fairly large hematoma, findings listed above. She was contacted to come back into the ER for further evaluation. The patient arrived and was still feeling well with no overt signs of bleeding. An abdominal ultrasound was obtained which actually showed a resolving hematoma. In addition, her hemoglobin had improved to 7.3 without any intervention. Incidentally she had elevated blood pressures in the 170s and was admitted for preeclampsia workup. Workup was negative. However, her pressures remained elevated in the 140s and 150s so she was started on Procardia. She was given specific instructions to continue daily monitoring of her blood pressures as her body transitions out of physiology she may not further require oral antihypertensives. She was clinically stabilized and felt well and was discharged. Return precautions discussed. She plans to follow up at [facility] this next week. DISPOSITION: Stable. DISCHARGE INSTRUCTIONS: 1. Location: Home. 2. Diet: Regular diet. 3. Activity: Ad rebecca as tolerated. No lifting greater than 10 pounds. Pelvic rest for 6 weeks. 4. Followup: Please follow up with [facility] this week. Please record blood pressures. Extensive return precautions were given on signs for worsening bleeding was discussed with the patient. Job ID: [id number] [facility]
== END 2020-03-28 13:50 | disposition home or self-care (01) ==
LOC: ERS 18:19 → 3SW 22:27
PROVIDERS: ADMIT Family Medicine; ATTEND Family Medicine
DX: I10 Essential (primary) hypertension (principal); M96.841 Postprocedural hematoma of a musculoskeletal structure following other procedure; D62 Acute posthemorrhagic anemia; D53.9 Nutritional anemia, unspecified; F12.10 Cannabis abuse, uncomplicated; J45.909 Unspecified asthma, uncomplicated; F31.9 Bipolar disorder, unspecified; G40.909 Epilepsy, unspecified, not intractable, without status epilepticus; Z87.891 Personal history of nicotine dependence; Z79.1 Long term (current) use of non-steroidal anti-inflammatories (NSAID); Z79.899 Other long term (current) drug therapy; Z91.018 Allergy to other foods; Z20.828 Contact with and (suspected) exposure to other viral communicable diseases
CPT/HCPCS: 36415; 76705; 80053; 80306; 81003; 81015; 82570; 82607; 82746; 84156; 85025; 87635; 96374; G0378; J0360; U0003

== ENCOUNTER 2022-12-02 06:35 | Emergency (ER) | payer OTHER ==
[2022-12-02] MEDS ORDERED: Ipratropium/Albuterol 3 ML NEB ONE (06:49)
[2022-12-02] MEDS ORDERED: Dexamethasone 10 MG/ML VIAL ONE (06:49)
[2022-12-02 07:07] LABS: #Basophils 0.1 thou/uL (0.0-0.2); #Eosinphils 0.2 thou/uL (0.0-0.7); #Lymphocytes 1.3 thou/uL (1.20-3.40); #Monocytes 0.4 thou/uL (0.11-0.59); #Neutrophils 3.2 thou/uL (1.40-6.50); %Basophils 1.3 % (0.0-1.0); %Eosinophils 3.2 % (0.0-10.0); %Lymphocytes 24.5 % (21.0-51.0); %Monocytes 8.5 % (0.0-10.0); %Neutrophils 62.5 % (42.0-75.0); Hemoglobin 12.8 g/dL (12.0-16.0); Mean Corpuscular HGB CONC 36.4 g/dL (32.0-36.0); Mean Corpuscular Hemoglobin 37.3 pg (27.0-31.0); Mean Platelet Volume 7.2 fL (7.4-10.4); Platelet Count 241 10x3/uL (130-400); Red Blood Cell (RBC) Count 3.44 mill/uL (4.20-5.40); White Blood Cell (WBC) Count 5.1 10x3/uL (4.8-10.8)
[2022-12-02 07:18] LABS: BHCG - Serum Negative (NEGATIVE); Pregs Control Background? CLEAR/WHITE (CLR/WHITE); Pregs Control Bar Appear? YES (CONTROL BAR)
[2022-12-02 07:22] LABS: ALT (SGPT) Less than 7 U/L (8-55); AST (SGOT) 11 U/L (5-34); Albumin 3.9 g/dL (3.5-5.0); Alkaline Phosphatase 36 U/L (40-110); Anion Gap 12 mmol/L (10-20); BUN (Urea Nitrogen) 15 mg/dL (7.0-18.7); Bilirubin, Total 0.3 mg/dL (0.2-1.2); Calc. Creatinine Clearance 0 mL/min (70-130); Calcium 8.8 mg/dL (7.8-10.44); Carbon Dioxide 22 mmol/L (22-29); Chloride 108 mmol/L (98-107); Estimated GFR 71; Glucose 118 mg/dL (70-105); Potassium 3.5 mmol/L (3.5-5.1); Protein, Total 6.9 g/dL (6.0-8.3); Sodium 138 mmol/L (136-145)
== END 2022-12-02 07:57 | disposition home or self-care (01) ==
LOC: ERS 06:35
DX: J45.901 Unspecified asthma with (acute) exacerbation (principal); F17.210 Nicotine dependence, cigarettes, uncomplicated
CPT/HCPCS: 36415; 71045; 80053; 84484; 84703; 85025; 93005; J1100; J7620

== ENCOUNTER 2023-05-04 23:33 | Emergency (ER) | payer OTHER ==
[2023-05-05] MEDS ORDERED: Ondansetron ODT 4 MG TAB ONE (00:16)
[2023-05-05 01:10] LABS: Pregnancy Test - Urine (BHCG) POSITIVE (Negative); Pregu Control Background? CLEAR/WHITE (CLR/WHITE); Pregu Control Bar Appear? YES (CONTROL BAR)
[2023-05-05 01:35] LABS: Bacteria/HPF 3+ HPF (None Seen); Bilirubin Negative (Negative); Blood, Urine Negative (Negative); CAUTI Indications for Culture Pelvic or flank pain; Clarity Turbid (Clear); Glucose, Urine (Dipstick) Normal (Negative); Ketone, Urine Negative (Negative); Leukocyte 250 Leu/uL (Negative); Nitrite Negative (Negative); Protein, Urine (Dipstick) 70 mg/dL (Neg-Trace); Specific Gravity, Urine 1.034 (1.002-1.036); WBC/HPF 21-50 HPF (0-3); pH, Urine 6.5 (5.0-9.0)
[2023-05-05 01:40] LABS: RBC/HPF 0-3 HPF (0-3)
[2023-05-05 01:40] LABS: SARS-CoV-2 NAA Rapid Test Not Detected (NotDetected)
[2023-05-05 01:41] LABS: Specific Gravity 1.034 (1.002-1.036); Urine Culture Reflex Yes Yes
== END 2023-05-05 03:35 | disposition home or self-care (01) ==
LOC: ERS 23:33
DX: O21.9 Vomiting of pregnancy, unspecified (principal); Z3A.00 Weeks of gestation of pregnancy not specified
CPT/HCPCS: 36415; 81001; 81025; 84702; 87086; 99284; Q0162

== ENCOUNTER 2023-05-29 10:58 | Emergency (ER) | payer OTHER ==
[2023-05-29 11:34] LABS: Bacteria/HPF 1+ HPF (None Seen); Bilirubin Negative (Negative); Blood, Urine Negative (Negative); CAUTI Indications for Culture Pregnancy; Clarity Turbid (Clear); Glucose, Urine (Dipstick) Normal (Negative); Ketone, Urine Negative (Negative); Leukocyte 500 Leu/uL (Negative); Nitrite Negative (Negative); Protein, Urine (Dipstick) 30 mg/dL (Neg-Trace); RBC/HPF None Seen HPF (0-3); Specific Gravity, Urine 1.031 (1.002-1.036); WBC/HPF 21-50 HPF (0-3)
[2023-05-29 11:35] LABS: Urine Culture Reflex Yes Yes
[2023-05-29 13:21] LABS: #Eosinphils 0.2 thou/uL (0.0-0.7); #Neutrophils 6.4 thou/uL (1.40-6.50); %Basophils 0.3 % (0.0-1.0); %Eosinophils 1.6 % (0.0-10.0); %Lymphocytes 20.8 % (21.0-51.0); %Neutrophils 66.9 % (42.0-75.0); Hematocrit 32.5 % (36.0-47.0); Hemoglobin 11.3 g/dL (12.0-16.0); Mean Corpuscular HGB CONC 34.8 g/dL (32.0-36.0); Mean Corpuscular Hemoglobin 35.6 pg (27.0-31.0); Mean Corpuscular Volume 102.5 fl (78.0-98.0); Mean Platelet Volume 8.4 fL (7.4-10.4); Platelet Count 431 10x3/uL (130-400); Red Blood Cell (RBC) Count 3.17 mill/uL (4.20-5.40); White Blood Cell (WBC) Count 9.6 10x3/uL (4.8-10.8)
[2023-05-29 13:44] LABS: ALT (SGPT) 10 U/L (8-55); AST (SGOT) 10 U/L (5-34); Albumin 4.5 g/dL (3.5-5.0); Alkaline Phosphatase 40 U/L (40-110); Anion Gap 12 mmol/L (10-20); BUN (Urea Nitrogen) 8 mg/dL (7.0-18.7); Bilirubin, Total 0.2 mg/dL (0.2-1.2); Calc. Creatinine Clearance 0 mL/min (70-130); Calcium 9.5 mg/dL (7.8-10.44); Carbon Dioxide 24 mmol/L (22-29); Chloride 104 mmol/L (98-107); Estimated GFR 115; Globulin 2.8 g/dL (2.4-3.5); Glucose 87 mg/dL (70-105); Protein, Total 7.3 g/dL (6.0-8.3); Sodium 136 mmol/L (136-145)
== END 2023-05-29 14:19 | disposition home or self-care (01) ==
LOC: ERS 10:58
DX: N39.0 Urinary tract infection, site not specified (principal); F17.210 Nicotine dependence, cigarettes, uncomplicated
CPT/HCPCS: 36415; 76801; 80053; 81001; 84702; 85025; 87086

== ENCOUNTER 2023-06-11 18:57 | Emergency (ER) | payer OTHER | END 2023-06-11 20:46 | disposition home or self-care (01) | LOC: ERS 18:57 | DX: O9A.211 Injury, poisoning and certain other consequences of external causes complicating pregnancy, first trimester (principal); O99.334 Smoking (tobacco) complicating childbirth; Z3A.11 11 weeks gestation of pregnancy | CPT/HCPCS: 99284 ==

== ENCOUNTER 2024-06-03 19:27 | Emergency (ER) | payer OTHER ==
[2024-06-03] MEDS ORDERED: Ibuprofen 200 MG TAB ONE (20:05)
== END 2024-06-03 21:05 | disposition home or self-care (01) ==
LOC: ERS 19:27
DX: B34.9 Viral infection, unspecified (principal); F17.210 Nicotine dependence, cigarettes, uncomplicated
CPT/HCPCS: 87428; 99283

== ENCOUNTER 2025-05-30 04:47 | Emergency (ER) | payer OTHER | END 2025-05-30 06:06 | disposition home or self-care (01) | LOC: ERS 04:47 | DX: O99.612 Diseases of the digestive system complicating pregnancy, second trimester (principal); O99.332 Smoking (tobacco) complicating pregnancy, second trimester; K08.89 Other specified disorders of teeth and supporting structures; F17.210 Nicotine dependence, cigarettes, uncomplicated; Z3A.21 21 weeks gestation of pregnancy | CPT/HCPCS: 99282 ==